=== PATIENT | female | born 1950 | race Caucasian/White ===

== ENCOUNTER 2018-05-19 05:55 | Inpatient (IN) ==
--- NOTE | 2018-04-24 10:18 | Anesthesiology Consultation ---
Date of Service April 24, 2018 Assessment & Plan (1) Encounter for pre-operative examination: Plan: *PT HAS H/O EGG ALLERGY. DOES NOT GET FLU SHOT, BUT DOES EAT EGGS WITH NO ISSUES. HAS HAD COLONOSCOPY WITH SEDATION IN THE PAST. Chart Review Chart Review: Acceptable Risk for Surgery and Patient seen in Pre Admission Testing Teaching & Discussion Instructed NPO after midnight before surgery, except medications with 15 cc of water. Medication instructions provided according to the PAT guidelines. History Surgery Operation Date: 05/19/18 08:15 Proposed Procedures p Total Knee Arthroplasty Moira - Quan Castillo DO Height/Weight Height: 5 ft Weight: 103.9 kg Allergies Allergy/AdvReac Type Severity Reaction Status Date / Time adhesive Allergy RASH WITH Verified 04/15/18 12:05 EXTENDED WEAR Egg Derived Allergy ALLERGY Verified 04/15/18 12:05 A CHILD Sulfa (Sulfonamide Allergy ITCHING Verified 04/15/18 12:04 Antibiotics) AND RASH INSECT BITES Allergy HYPERSENITIVE Uncoded 04/15/18 12:06 RXN, ALMOST ALWAYS DEVELOPED CELLULITIS Medications Home Medications Medication Instructions Recorded Confirmed Last Taken calcium carbonate-vitamin D3 1 tab PO BID 04/15/18 04/15/18 Unknown [Calcium 500 + D (D3)] clonazepam 0.25 mg PO UD PRN 04/15/18 04/15/18 Unknown furosemide 40 mg PO DAILY PRN 04/15/18 04/15/18 Unknown levothyroxine 50 mcg PO HS 04/15/18 04/15/18 Unknown meloxicam 7.5 mg PO QAM 04/15/18 04/15/18 Unknown pedi multivitamin no.79-iron 1 tab PO QAM 04/15/18 04/15/18 Unknown [Flintstones with Iron] potassium chloride [Klor-Con 10] 10 meq PO UD PRN 04/15/18 04/15/18 Unknown Past Medical History Medical History Anxiety History of cellulitis 4x per pt, most recently in 09/2017. Surgeon aware. Pt states usually 2/2 insect bite. Hypothyroidism Morbid obesity Osteoarthritis Past Surgical History Surgical History History of carpal tunnel release B/L History of section X2 History of herniorrhaphy UMBILICAL HERNIA REPAIR History of tonsillectomy Past Anesthesia History No Hx of Anesthesia Complications and No Family Hx of Anesthesia Complications History of PONV No Motion Sickness Screening History of Motion Sickness: No Social History Smoking Status: Never smoker Do You Dip or Chew Tobacco: No Hx Alcohol Use: No Hx Substance Use: No substance use type: does not use Exercise / Class Metabolic Activity III < 4 Walking/Shop/Light housework (+SOB, no CP with 1 FOS 2/2 knee pain and deconditioning.) Review of Systems Pt denies any recent chest pain, shortness of breath, palpitations, cough, fever or URI. Physical Exam Vital Signs BP: 114/75 P: 75bpm SPO2: 95% RA T: 98.0 F R: 16 ENMT Mouth: + dental restorations (2 crowns); no chipped teeth and no loose teeth Thyromental Distance: < 3.5 Finger Breadths (3) Mallampati Class: II Mouth / Teeth: 2 1. crown 2. crown Neck normal visual inspection; neck extension not limited Respiratory normal respiratory effort Auscultation: lungs clear to auscultation bilaterally Cardiovascular Rate/Rhythm: regular rate and regular rhythm Heart Sounds: no murmur Vessels: no carotid bruit Extremities: + edema (trace pitting edema B/L, baseline per pt) Testing Electrocardiogram Date: 04/24/18 Findings: + NSR @ (67) SR with PACs, otherwise normal. Chest X-Ray Date: 04/24/18 Findings: + NAD and + cardiomegaly (mild) Laboratory Results 04/24/18 10:35 04/24/18 10:35 Blood Type A Positive 04/24/18 10:35 Antibody Screen NEGATIVE 04/24/18 10:35 PT 10.7 Seconds (9.0-12.0) 04/24/18 10:35 INR 1.1 (0.9-1.1) 04/24/18 10:35 APTT 27.0 Seconds (21.0-31.0) 04/24/18 10:35 Hemoglobin A1c 6.2 % (4.5-5.6) H 04/24/18 10:35 Urine Color Yellow 04/24/18 10:35 Urine Appearance Clear (Clear) 04/24/18 10:35 Urine pH 6.5 (4.5-7.5) 04/24/18 10:35 Ur Specific [place] 1.017 (1.000-1.030) 04/24/18 10:35 Urine Protein Negative (Negative) 04/24/18 10:35 Urine Glucose (UA) Negative (Negative) 04/24/18 10:35 Urine Ketones Negative (Negative) 04/24/18 10:35 Urine Nitrite Negative (Negative) 04/24/18 10:35 Ur Leukocyte Esterase Trace (Negative) H 04/24/18 10:35 Urine WBC (Auto) 1-5 /hpf (0-5) 04/24/18 10:35 Urine RBC (Auto) 0-4 /hpf (0-4) 04/24/18 10:35 U Hyaline Cast (Auto) 0 /lpf (0-5) 04/24/18 10:35 U Epithel Cells (Auto) 10-20 /lpf (0-5) H 04/24/18 10:35 Urine Bacteria (Auto) Negative (Negative) 04/24/18 10:35 04/24/18 10:35 Urine Culture - Final Urine,Clean Catch More than three types of organisms present, all low counts mixed probable skin adam. No further identifications or sensitivities to follow.
--- NOTE | 2018-04-24 10:31 | PAT Medication Instructions ---
Medication Instructions Date of Service April 24, 2018 Home Medications calcium carbonate-vitamin D3 1 tab PO BID clonazepam 0.25 mg PO UD PRN furosemide 40 mg PO DAILY PRN levothyroxine 50 mcg PO HS meloxicam 7.5 mg PO QAM [Flintstones with Iron] 1 tab PO QAM potassium chloride [Klor-Con 10] 10 meq PO UD PRN ASK your surgeon for instructions meloxicam 7.5 mg PO QAM DO NOT take the morning of surgery calcium carbonate-vitamin D3 1 tab PO BID furosemide 40 mg PO DAILY PRN [Flintstones with Iron] 1 tab PO QAM potassium chloride [Klor-Con 10] 10 meq PO UD PRN Take morning of surgery With a small sip of water, OTHERWISE NOTHING TO EAT OR DRINK AFTER MIDNIGHT: clonazepam 0.25 mg PO UD PRN Take evening before surgery levothyroxine 50 mcg PO HS Other Notes If you have any questions please call us at [phone] or [phone] or [phone] or [phone]
--- NOTE | 2018-04-24 11:07 | XRay Report ---
XR chest Pre-admission PA/Lat HISTORY: Preop. COMPARISON: None. FINDINGS: The lungs are clear. The heart is mildly enlarged. No pleural effusions. No pneumothorax. IMPRESSION: Mild cardiomegaly. Electronically signed by: Topher Reynolds M.D. 04/24/2018 11:06 AM
[2018-04-24 12:40] LABS: Basophils # (auto) 0.02 K/uL (0-0.2); Basophils % (auto) 0.3 %; Eosinophils # (auto) 0.14 K/uL (0-0.5); Hematocrit (blood only) 38.2 % (37-47); Hemoglobin 12.3 g/dL (12.0-16.0); Immature Granulocytes # (auto) 0.03 K/uL (0.00-0.02); Immature Granulocytes % (auto) 0.4 %; Lymphocytes # (auto) 1.87 K/uL (1.2-3.4); Lymphocytes % (auto) 27.3 %; Mean Corpuscular Hgb Conc 32.2 g/dL (32-36); Mean Corpuscular Volume 94.3 fL (80-100); Mean Platelet Volume 10.4 fL (7.4-10.4); Monocytes % (auto) 10.2 %; Neutrophils # (auto) 4.09 K/uL (1.4-6.5); Neutrophils % (auto) 59.8 %; Platelet Count 263 K/uL (130-400); RDW Coefficient of Variation 14.3 % (11.5-14.5); RDW Standard Deviation 49.2 fL (36.4-46.3); Red Blood Count 4.05 M/uL (4.2-5.4); White Blood Count 6.85 K/uL (4.8-10.8)
[2018-04-24 12:44] LABS: Appearance Urine Clear (Clear); Bacteria Urine Automated Negative (Negative); Bilirubin Urine Negative (Negative); Cast Urine Automated 0 /lpf (0-5); Color Urine Yellow; Glucose Urine UA Negative (Negative); Ketones Urine Negative (Negative); Leukocyte Esterase Urine Trace (Negative); Nitrite Urine Negative (Negative); Protein Urine Negative (Negative); Specific Gravity Urine 1.017 (1.000-1.030); Urobilinogen Urine Negative (Negative); pH Urine 6.5 (4.5-7.5)
[2018-04-24 12:50] LABS: INR 1.1 (0.9-1.1); Prothrombin Time 10.7 Seconds (9.0-12.0)
[2018-04-24 13:05] LABS: Albumin Level 3.6 gm/dl (3.4-5.0); BUN Creatinine Ratio 23.1 (10-20); Calcium 9.1 mg/dl (8.5-10.1); Creatinine Clr Calc Pharmacy 78.1 ml/min; Est GFR (African American) 93.3; Est GFR (Non-African American) 80.5; Potassium 4.3 mmol/L (3.5-5.1)
[2018-04-24 13:09] LABS: Estimated Average Glucose 131 mg/dl
--- NOTE | 2018-04-24 15:44 | History & Physical Report ---
Date of Service April 24, 2018 Assessment & Plan (1) Degenerative arthritis of knee, bilateral: Further care discussed with patient and at this point in time has failed conservative measures and would like to proceed with bilateral total knee replacements. Plan on discharge will be home with home health physical therapy. DVT prophalaxis with TEDs, SCDs and will also place on Xarelto x 1 month postop. Patient will have follow up appointment in our office two weeks post op for staple/suture removal and re-evaluation. Patient otherwise has no other questions or concerns. History of Present Illness Chief Complaint: bilateral knee pain Primary Care Provider: Bindu Hassan Ms Barron is a 68 year old female who complains of knee pain equally on both sides, presents for pre-op evaluation prior to bilateral total knee replacements. She states that the symptoms have been chronic non-traumatic. The symptoms occur constantly with intermittent worsening. The problem is fluctuating. Currently the patient states that the symptoms are moderate- severe. The pain is described as aching and sharp. The patient is experiencing pain in the following location: anterior aspect on the right and left side equally. She rates her current pain as 8/10. The symptoms are aggravated by ascending stairs, descending stairs, daily activities and walking. The patient has had a previous x-ray. She has been treated with a corticosteroid injection on the right and left side equally. Patient had Supartz Injection completed on 02/25/18. Patient is scheduled for bilateral TKA on 05-19-18. Allergies Allergy/AdvReac Type Severity Reaction Status Date / Time adhesive Allergy RASH WITH Verified 04/15/18 12:05 EXTENDED WEAR Egg Derived Allergy ALLERGY Verified 04/15/18 12:05 A CHILD Sulfa (Sulfonamide Allergy ITCHING Verified 04/15/18 12:04 Antibiotics) AND RASH INSECT BITES Allergy HYPERSENITIVE Uncoded 04/15/18 12:06 RXN, ALMOST ALWAYS DEVELOPED CELLULITIS Home Medications Home Medications Medication Instructions Recorded Confirmed Type calcium carbonate-vitamin D3 1 tab PO BID 04/15/18 04/15/18 History [Calcium 500 + D (D3)] clonazepam 0.25 mg PO UD PRN 04/15/18 04/15/18 History furosemide 40 mg PO DAILY PRN 04/15/18 04/15/18 History levothyroxine 50 mcg PO HS 04/15/18 04/15/18 History meloxicam 7.5 mg PO QAM 04/15/18 04/15/18 History pedi multivitamin no.79-iron 1 tab PO QAM 04/15/18 04/15/18 History [Flintstones with Iron] potassium chloride [Klor-Con 10] 10 meq PO UD PRN 04/15/18 04/15/18 History Past Med/Surg History Medical History Anxiety History of cellulitis 4x per pt, most recently in 09/2017. Surgeon aware. Pt states usually 2/2 insect bite. 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 Passive ROM - Flexion: 115 degrees , Extension: 3 degrees, Factors: pain, Description: passive painful range of motion. Knee ROM R * Active ROM - Flexion: 115 degrees, Extension: 3 degrees, Factors: pain, Description: active painful range of motion. Passive ROM - Flexion: 115 degrees , Extension: 3 degrees, Factors: pain, Description: passive painful range of motion. Strength LE Normal Strength Description - Normal lower extremity: Bilateral. Constitutional Normal No acute distress. Well nourished. Well developed. Knee * Inspection - Gait: antalgic. Alignment - Right: neutral, Left: neutral. Ecchymosis - Right: negative, Left: negative. Effusion - Right: mild, Left: mild. Swelling - Right: mild, Left: mild. Flexibility - Right: normal, Left: normal. Maximum tenderness - Right: medial joint line, lateral joint line, patella, Left: medial joint line, lateral joint line, patella. Patella exam - Crepitation - Right: mild, Left: mild. Patella position - Right: neutral, Left: neutral. Tilt - Right: equal, Left: equal. [facility]'s - lateral - Right: Positive, Left: Positive. [place]'s - medial - Right: Positive, Left: Positive. Knee Comments No calf tenderness; abrasion to right lower leg, mild erythema no drainage. Knee Normal Inspection - Atrophy - Right: Absent, Left: Absent. Skin - Right: Normal, Left: Normal. Patella exam - Apprehension - Right: Negative, Left: Negative. Q-angle - Right: Normal, Left: Normal. Alina's - Right: Negative, Left: Negative. Posterior drawer - Right: Negative, Left: Negative. Anterior drawer - Right: Negative, Left: Negative. Valgus stress - Right: Negative, Left: Negative. Varus stress - Right: Negative, Left: Negative. Extensor lag - Right: Normal, Left: Normal. Neurovascular LE Normal Neurovascular examination including reflexes, sensation, and pulses is within normal limits. Results & Data Diagnostic Findings Bilateral Knee X-ray: bilateral knee series confirm advanced degenerative changes bilateral knees, greatest medial compartments and patellofemoral joints, showing joint space narrowing, osteophyte formation and subchondral sclerosis. no acute bony pathology noted.
--- NOTE | 2018-05-15 14:14 | History & Physical Report ---
Date of Service May 15, 2018 Assessment & Plan (1) Primary localized osteoarthritis of right knee: Further care discussed with patient and at this point in time has failed conservative measures and would like to proceed with Right total knee replacement. Plan on discharge will be home with home health physical therapy. DVT prophalaxis with TEDs, SCDs and will also place on Aspirin 81mg po x 1 month postop. Patient will have follow up appointment in our office two weeks post op for staple/suture removal and re-evaluation. Patient otherwise has no other questions or concerns. History of Present Illness Chief Complaint: RIGHT KNEE PAIN Primary Care Provider: Bindu Hassan Ms Barron is a 68 year old female who complains of Righ knee pain, presents for pre-op evaluation prior to right total knee replacement at [facility]. She states that the symptoms have been chronic non-traumatic. The symptoms occur constantly with intermittent worsening. Currently the patient states that the symptoms are moderate-severe. The pain is described as aching and sharp. The patient is experiencing pain in the following location: anterior aspect on the right and left side equally. She rates her current pain as 8/10. The symptoms are aggravated by ascending stairs, descending stairs, daily activities and walking. The patient has had a previous x-ray. She has been treated with a corticosteroid injection on the right and left side equally. Patient had Supartz Injection completed on 02/25/18. Patient is scheduled for Right TKA Allergies Allergy/AdvReac Type Severity Reaction Status Date / Time adhesive Allergy RASH WITH Verified 04/15/18 12:05 EXTENDED WEAR Egg Derived Allergy ALLERGY Verified 04/15/18 12:05 A CHILD Sulfa (Sulfonamide Allergy ITCHING Verified 04/15/18 12:04 Antibiotics) AND RASH Home Medications Home Medications Medication Instructions Recorded Confirmed Type calcium carbonate-vitamin D3 1 tab PO BID 04/15/18 04/15/18 History [Calcium 500 + D (D3)] clonazepam 0.25 mg PO UD PRN 04/15/18 04/15/18 History furosemide 40 mg PO DAILY PRN 04/15/18 04/15/18 History levothyroxine 50 mcg PO HS 04/15/18 04/15/18 History meloxicam 7.5 mg PO QAM 04/15/18 04/15/18 History pedi multivitamin no.79-iron 1 tab PO QAM 04/15/18 04/15/18 History [Flintstones with Iron] potassium chloride [Klor-Con 10] 10 meq PO UD PRN 04/15/18 04/15/18 History Past Med/Surg History Medical History Anxiety History of cellulitis 4x per pt, most recently in 09/2017. Surgeon aware. Pt states usually 2/2 insect bite. Hypothyroidism Morbid obesity Osteoarthritis Surgical History History of carpal tunnel release B/L History of section X2 History of herniorrhaphy UMBILICAL HERNIA REPAIR History of tonsillectomy Family History Unknown Diabetes Social History Current Living Situation: Spouse Other Information That Helps Us Care for You: No Feels Safe at Home: Yes Safety Concerns: Feels Safe At This Time Smoking Status: Never smoker Do You Dip or Chew Tobacco: No Hx Alcohol Use: No Hx Substance Use: No Beliefs That Will Affect Care: None Preferred Language: Uzbek Communication Ability: Effective Configuration Technician Required: No Review of Systems All systems reviewed & are unremarkable except as noted in HPI & below Physical Exam 2 Constitutional: WD/WN, vitals as above no acute distress Respiratory: normal respiratory effort, lungs clear to auscultation Cardiovascular: RRR, no murmur, no edema Gastrointestinal (Abdomen): normal bowel sounds, soft, nontender, no hepatosplenomegaly Musculoskeletal: Right Knee Exam Patient ambulates with a limp, overall varus Alignment, no Atrophy or Ecchymosis , she does have mild Effusion, Maximum tenderness Medial and lateral joint line , negative patellar Apprehension , mild Crepitation with motion, Patella position Neutral, Alina's Negative, Xiang's - lateral positive, Xiang's - medial positive, Posterior drawer- Negative, Anterior drawer Negative, Valgus stress Negative, Varus stress Negative, no Extensor lag, Pain with Active range of motion and passive painful ROM, Range of motion 0/5/100. Lower Extremity Strength normal. Lower Extremity Neuro-vascular is normal Results & Data Laboratory Results Laboratory Results WBC 6.85 K/uL (4.8-10.8) 04/24/18 10:35 RBC 4.05 M/uL (4.2-5.4) L 04/24/18 10:35 Hgb 12.3 g/dL (12.0-16.0) 04/24/18 10:35 Hct 38.2 % (37-47) 04/24/18 10:35 MCV 94.3 fL (80-100) 04/24/18 10:35 MCH 30.4 pg (25-34) 04/24/18 10:35 MCHC 32.2 g/dL (32-36) 04/24/18 10:35 RDW Std Deviation 49.2 fL (36.4-46.3) H 04/24/18 10:35 RDW Coeff of Carmella 14.3 % (11.5-14.5) 04/24/18 10:35 Plt Count 263 K/uL (130-400) 04/24/18 10:35 MPV 10.4 fL (7.4-10.4) 04/24/18 10:35 Immature Gran % (Auto) 0.4 % 04/24/18 10:35 Neut % (Auto) 59.8 % 04/24/18 10:35 Lymph % (Auto) 27.3 % 04/24/18 10:35 Cochran % (Auto) 10.2 % 04/24/18 10:35 Eos % (Auto) 2.0 % 04/24/18 10:35 Baso % (Auto) 0.3 % 04/24/18 10:35 Immature Gran # (Auto) 0.03 K/uL (0.00-0.02) H 04/24/18 10:35 Neut # (Auto) 4.09 K/uL (1.4-6.5) 04/24/18 10:35 Lymph # (Auto) 1.87 K/uL (1.2-3.4) 04/24/18 10:35 Cochran # (Auto) 0.70 K/uL (0.11-0.59) H 04/24/18 10:35 Eos # (Auto) 0.14 K/uL (0-0.5) 04/24/18 10:35 Baso # (Auto) 0.02 K/uL (0-0.2) 04/24/18 10:35 PT 10.7 Seconds (9.0-12.0) 04/24/18 10:35 INR 1.1 (0.9-1.1) 04/24/18 10:35 APTT 27.0 Seconds (21.0-31.0) 04/24/18 10:35 PTT Ratio 1.0 04/24/18 10:35 Sodium 138 mmol/L (136-145) 04/24/18 10:35 Potassium 4.3 mmol/L (3.5-5.1) 04/24/18 10:35 Chloride 105 mmol/L (98-107) 04/24/18 10:35 Carbon Dioxide 29 mmol/L (21-32) 04/24/18 10:35 Anion Gap 4.0 (3-11) 04/24/18 10:35 BUN 18 mg/dl (7-18) 04/24/18 10:35 Creatinine 0.77 mg/dl (0.6-1.2) 04/24/18 10:35 Est Cr Clr Drug Dosing 78.1 ml/min 04/24/18 10:35 Est GFR ( Amer) 93.3 04/24/18 10:35 Est GFR (Non-Af Amer) 80.5 04/24/18 10:35 BUN/Creatinine Ratio 23.1 (10-20) H 04/24/18 10:35 Glucose 104 mg/dl (70-99) H 04/24/18 10:35 Estimat Average Glucose 131 mg/dl 04/24/18 10:35 Hemoglobin A1c 6.2 % (4.5-5.6) H 04/24/18 10:35 Calcium 9.1 mg/dl (8.5-10.1) 04/24/18 10:35 Albumin 3.6 gm/dl (3.4-5.0) 04/24/18 10:35 Urine Color Yellow 04/24/18 10:35 Urine Appearance Clear (Clear) 04/24/18 10:35 Urine pH 6.5 (4.5-7.5) 04/24/18 10:35 Ur Specific [place] 1.017 (1.000-1.030) 04/24/18 10:35 Urine Protein Negative (Negative) 04/24/18 10:35 Urine Glucose (UA) Negative (Negative) 04/24/18 10:35 Urine Ketones Negative (Negative) 04/24/18 10:35 Urine Blood Negative (Negative) 04/24/18 10:35 Urine Nitrite Negative (Negative) 04/24/18 10:35 Urine Bilirubin Negative (Negative) 04/24/18 10:35 Urine Urobilinogen Negative (Negative) 04/24/18 10:35 Ur Leukocyte Esterase Trace (Negative) H 04/24/18 10:35 Urine WBC (Auto) 1-5 /hpf (0-5) 04/24/18 10:35 Urine RBC (Auto) 0-4 /hpf (0-4) 04/24/18 10:35 U Hyaline Cast (Auto) 0 /lpf (0-5) 04/24/18 10:35 U Epithel Cells (Auto) 10-20 /lpf (0-5) H 04/24/18 10:35 Urine Bacteria (Auto) Negative (Negative) 04/24/18 10:35 Blood Type A Positive 04/24/18 10:35 Antibody Screen NEGATIVE 04/24/18 10:35 Diagnostic Findings Right Knee X-ray: Right knee series showing advanced degenerative changes to the right knee, narrowing of the medial compartment and patello-femoral joint with patellar spurring noted, findings showing joint space narrowing of the medial compartment and patello-femoral joint, osteophyte formation and subchondral sclerosis noted. overall varus alignment. no acute bony pathology noted.
[2018-05-19] MEDS ORDERED: GABAPENTIN 300 MG PO SCH (06:00)
[2018-05-19] MEDS ORDERED: dexAMETHasone 4 MG TAB PO SCH (06:00)
[2018-05-19] MEDS ORDERED: TRANEXAMIC ACID 1,000 MG **IV Pre-op IV SCH (06:00)
[2018-05-19] MEDS ORDERED: FAMOTIDINE 20 MG TAB PO SCH (06:00)
[2018-05-19] MEDS ORDERED: ACETAMINOPHEN 500 MG TAB PO SCH (06:00)
[2018-05-19] MEDS ORDERED: ROPIVACAINE 0.5% HCL/PF 150 MG, BUPIVACAINE 0.5% MPF 30 ML, EPINEPHrine 30MG/30ML (OR U... INFIL SCH (06:00)
[2018-05-19] MEDS ORDERED: CEFAZOLIN 2000MG 2,000 MG/15 ML SYR IV SCH (06:00)
[2018-05-19] MEDS ORDERED: CeleBREX 200 MG CAP PO SCH (06:00)
[2018-05-19] MEDS ORDERED: METOCLOPRAMIDE HCL 10 MG TABLET PO SCH (06:00)
[2018-05-19] MEDS ORDERED: TRANEXAMIC ACID 1,000 MG **IV Intra-op IV SCH (06:30)
[2018-05-19] MEDS ORDERED: BUPIVACAINE 0.5 % 5 MG/1 ML PF 10ML VIAL ONE (06:36)
[2018-05-19] MEDS ORDERED: BUPIVACAINE/EPINEPHRINE 0.5% MPF 1:200,000 30 ML VIAL ONE (06:36)
[2018-05-19] MEDS ORDERED: DEXAMETHASONE SOD INJ 4 MG/ML VIAL ONE (06:37)
[2018-05-19] MEDS ORDERED: fentaNYL citrate 100 MCG/2 ML VIAL ONE (07:06)
[2018-05-19] MEDS ORDERED: PHENYLEPHRINE 100MCG/ML 5ML SYR ONE (07:06)
[2018-05-19] MEDS ORDERED: ePHEDrine sulfate 50 MG/ML SYR ONE (07:06)
[2018-05-19] MEDS ORDERED: PROPOFOL IV EMULSION 10 MG/ML 20 ML VIAL IV ONE ×2 (07:06→09:12)
[2018-05-19] MEDS ORDERED: MIDAZOLAM HCL 1 MG/ML 2ML VIAL ONE (07:06)
[2018-05-19] MEDS ORDERED: LIDOCAINE HCL 2% 2 ML VIAL/AMP(20MG/ML) INFIL ONE (07:06)
[2018-05-19] MEDS ORDERED: BACITRACIN INJ 50,000 UNIT VIAL ONE (07:07)
[2018-05-19] MEDS: LR 500ML BOLUS, THEN 15ML/HR IV SCH ×4 (07:07→12:01)
[2018-05-19] MEDS ORDERED: ORTHO JOINT ANESTHETIC ONE (07:07)
[2018-05-19] MEDS ORDERED: POVIDONE-IODINE OP SOLN 30 ML BTL ONE (07:07)
--- NOTE | 2018-05-19 07:11 | History & Physical Bridge Note ---
Date of Service May 19, 2018 History & Physical Bridge Note I have examined the patient, reviewed the History & Physical and in the interval since the performance of the History & Physical I have noted the following changes of clinical significance: no changes noted
[2018-05-19] MEDS ORDERED: ONDANSETRON INJ 2 MG/ML 2 ML VIAL IV PRN ×2 (08:07→11:43)
[2018-05-19] MEDS ORDERED: fentaNYL citrate 100 MCG/2 ML VIAL IV PRN (08:07)
[2018-05-19] MEDS ORDERED: ePHEDrine sulfate 50 MG/ML AMP IV PRN (08:07)
[2018-05-19] MEDS ORDERED: ATROPINE SULFATE 0.1 MG/ML 10ML SYR IV PRN (08:07)
--- NOTE | 2018-05-19 09:50 | Operative Report ---
Post Operative Report Pre & Post Diagnosis Operation Date: 05/19/18 08:35 Pre-Op Diagnosis: RIGHT KNEE OSTEOARTHRITIS Post-Op Diagnosis: RIGHT KNEE OSTEOARTHRITIS Procedure Operation Date: 05/19/18 08:35 Actual Procedures p Right Total Knee Arthroplasty(Right) utilizing [employer] non-bloc journey to total knee arthroplasty size 4 femur size 3 tibia size 11 polyethylene size 32 oval patella- Quan Castillo DO Surgeon Quan Castillo DO Clinical Admissions Manager Torito SINGH Estimated Blood Loss 5 Findings Consistent with Post-Op Diagnosis Patient presents with severe end-stage tricompartmental degenerative joint disease varus alignment right knee with subchondral cystic changes marginal osteophytes moderate to large intra-articular effusion serial ligamentous laxity of medial compartment although response to conservative management the above findings were noted times surgery as well as preoperatively on radiographs and mri scans Specimens Bone and cartilage Drains Medium bore Hemovac Complications none Disposition Accompanied Patient To Recovery: No Disposition: Recovery Room Indications Patient presents as a 68-year-old white female with severe end-stage) degenerative joint disease right knee is been no response to conservative therapy she has udtc-on-tyvr changes patellofemoral compartment as well as medial compartment osteophyte subchondral cystic changes she is failed attempts at conservative management including injections cortical steroid injections Visco supplementation is bracing relative rest activity modification presents for right total knee arthroplasty the above findings are noted times surgery Description of Procedure After proper prepping and draping of the Right lower extremity anterior midline incision was made over the region of the extensor extensor mechanism after meticulous hemostasis was obtained and maintained in subcutaneous tissues a medial parapatellar incision was made The patella was subluxed lateralward the medial lateral gutter were cleaned from any hypertrophic synovitis and scar tissue of the distal femoral block was placed and the distal femoral osteotomy cut was made subsequently the chamfers anterior and posterior osteotomy cuts were made utilizing the 4-in-1 block the tibia was subsequently subluxed anteriorward medial and ateral meniscal remnants were excised in their entirety remnants of the anterior and posterior cruciate ligaments were excised in their entirety excellent exposure of the proximal tibia was obtained the tibial osteotomy guide was placed on the proximal tibial osteotomy cut was made once again the knee was irrigated with copious amounts of sterile saline solution the patella was subsequently everted lateralward thickened scar tissue around the patella was removed the patella was subsequently cut utilizing a freehand technique and was drilled prepared for final preparation and placement of patella socially flexion-extension gaps were checked and the equal and symmetric trials were placed to the appropriate femoral and tibial trials with poly-spacer being placed for equal flexion and extension gaps and full range of motion including extension to 0 and flexion to 140 the trial components after having been taken to recovery range of motion was subsequently removed meticulous hemostasis was obtained and maintained subsequently a knee block injection of joint cocktail including ropivacaine 0.5% 150 mg. Bupivacaine 0.5 % epinephrine 1-200,030 mL's toradol 30 mg dexamethasone 4 mg ketamine 10 mg clonidine 100 micrograms normal saline solution 30 mg was infiltrated into the soft tissues of the posterior knee medial lateral gutters and periosteal synovium special attention was paid to protect neurovascular structures at all times subsequently trial components having been removed the knee was irrigated with sterile saline solution. debris was removed the proximal tibia was subsequently prepared and was made ready for the placement of the tibial component tibial component was also cemented and tamped into position the femoral component was subsequently placed and cemented in the position the patellar component was subsequently cemented in position because hemostasis once again obtained and maintained wound having been thoroughly irrigated with debridement and debridement lavage was performed as well as a medial parapatellar incision closed with #1 Vicryl in interrupted fashion subcutaneous was closed with #2 Vicryl skin was closed with skin clips. PA-C was necessary for prepping and drapping as well as wound closure of deep fascia Sub cutaneous tissue and skin and was necessary for the case. A sterile compressive dressing was placed patient was taken to recovery in stable condition of report dictated by Jonathan I attest to the content of the Intraoperative Record and any orders documented therein. Any exceptions are noted below. I attest to the content of the Intraoperative Record and any orders documented therein. Any exceptions are noted below.
--- NOTE | 2018-05-19 11:07 | XRay Report ---
XR knee RT 2V routine CLINICAL HISTORY: Surgical Post Op COMPARISON: Knee radiographs August 11, 2017. FINDINGS: Alignment of the total right knee arthroplasty is anatomic. There is no fracture or unexpe cted radiopaque foreign body. Drains are in place. IMPRESSION: Expected findings following total right knee arthroplasty. Electronically signed by: Venu Henning M.D. 05/19/2018 11:05 AM
--- NOTE | 2018-05-19 11:12 | Anesthesiology Progress Note ---
Date of Service May 19, 2018 Anesthesia Post Procedure Vital Signs Vital Signs: Temp Pulse Pulse Pulse Resp BP BP 05/19/18 11:06 72 18 126/68 05/19/18 11:05 78 20 05/19/18 11:01 80 18 120/74 05/19/18 11:00 78 16 05/19/18 10:56 80 18 120/67 05/19/18 10:55 80 18 05/19/18 10:51 86 18 118/65 05/19/18 10:50 79 20 05/19/18 10:46 85 22 109/67 05/19/18 10:45 83 16 05/19/18 10:41 82 19 109/70 05/19/18 10:40 86 19 05/19/18 10:36 80 17 109/66 05/19/18 10:35 88 21 05/19/18 10:32 91 H 21 117/64 05/19/18 10:31 36.8 C 88 81 20 117/64 05/19/18 06:40 36.7 C 82 20 113/64 Pulse Ox 05/19/18 11:06 96 05/19/18 11:05 98 05/19/18 11:01 97 05/19/18 11:00 99 05/19/18 10:56 99 05/19/18 10:55 99 05/19/18 10:51 99 05/19/18 10:50 99 05/19/18 10:46 99 05/19/18 10:45 99 05/19/18 10:41 99 05/19/18 10:40 99 05/19/18 10:36 99 05/19/18 10:35 98 05/19/18 10:32 98 05/19/18 10:31 98 05/19/18 06:40 95 Pain Intensity Bilateral Knee: Pain Intensity: 8 Right Knee: Pain Intensity: 0 Notes Mental Status: alert / awake / arousable Patient Amnestic to Procedure: Yes Nausea / Vomiting: adequately controlled Pain: adequately controlled Airway Patency, RR, SpO2: stable & adequate BP & HR: stable & adequate Hydration State: stable & adequate Neuraxial Anesthesia: was administered and sensory block is resolving Anesthetic Complications: no major complications apparent
[2018-05-19] MEDS ORDERED: NALOXONE HCL 0.4 MG/1 ML VIAL/CARP IV PRN (11:43)
[2018-05-19] MEDS ORDERED: MAGNESIUM HYDROXIDE SUSP 30 ML UDC PO PRN (11:43)
[2018-05-19] MEDS ORDERED: ALUMINUM/MAGNESIUM SUSP 30 ML UDC PO PRN (11:43)
[2018-05-19] MEDS ORDERED: BISACODYL 10 MG SUPP PR PRN (11:43)
[2018-05-19] MEDS ORDERED: HYDROmorphone INJ 0.5 MG/0.5 ML SYR IV PRN (11:43)
[2018-05-19] MEDS: SODIUM CHLORIDE 0.9% 1000ML 1,000 ML IV SCH ×2 (14:43→22:18)
[2018-05-19] MEDS: OXYCODONE HCL IR 5 MG TAB (IMMEDIATE RELEASE) PO PRN (14:47)
[2018-05-19] MEDS: ACETAMINOPHEN 500 MG TAB PO SCH ×2 (14:47→22:03)
[2018-05-19] MEDS: CEFAZOLIN 2000MG 2,000 MG/15 ML SYR IV SCH (16:56)
[2018-05-19] MEDS ORDERED: Nursing to Pharmacy Communication ONE (17:08)
[2018-05-19] MEDS ORDERED: clonazePAM 0.5 MG TAB PO PRN (17:32)
[2018-05-19] MEDS: ASPIRIN 81 MG ECTAB PO SCH (20:38)
[2018-05-19] MEDS: DOCUSATE SODIUM 100 MG CAP PO SCH (20:38)
[2018-05-19] MEDS ORDERED: LEVOTHYROXINE SODIUM 50 MCG TABLET PO SCH (21:00)
[2018-05-19] MEDS ORDERED: SENNA 8.6 MG TAB PO SCH (21:00)
[2018-05-20] MEDS: CEFAZOLIN 2000MG 2,000 MG/15 ML SYR IV SCH (01:57)
[2018-05-20] MEDS: ACETAMINOPHEN 500 MG TAB PO SCH ×2 (05:36→13:37)
[2018-05-20] MEDS ORDERED: Nursing to Pharmacy Communication ONE (05:55)
[2018-05-20 07:17] LABS: Hematocrit (blood only) 33.3 % (37-47); Hemoglobin 10.6 g/dL (12.0-16.0); Mean Corpuscular Hgb Conc 31.8 g/dL (32-36); Mean Corpuscular Volume 94.3 fL (80-100); Mean Platelet Volume 10.3 fL (7.4-10.4); Platelet Count 238 K/uL (130-400); RDW Coefficient of Variation 14.7 % (11.5-14.5); RDW Standard Deviation 50.2 fL (36.4-46.3); Red Blood Count 3.53 M/uL (4.2-5.4); White Blood Count 16.64 K/uL (4.8-10.8)
[2018-05-20] MEDS: OXYCODONE HCL IR 5 MG TAB (IMMEDIATE RELEASE) PO PRN ×2 (07:30→13:37)
[2018-05-20] MEDS: DOCUSATE SODIUM 100 MG CAP PO SCH (07:32)
[2018-05-20] MEDS: ASPIRIN 81 MG ECTAB PO SCH (07:33)
[2018-05-20 07:42] LABS: BUN Creatinine Ratio 20.5 (10-20); Calcium 8.3 mg/dl (8.5-10.1); Creatinine Clr Calc Pharmacy 65.2 ml/min; Est GFR (African American) 76.2; Est GFR (Non-African American) 65.7; Potassium 4.3 mmol/L (3.5-5.1)
[2018-05-20] MEDS ORDERED: MULTIVITAMIN TAB PO SCH (09:00)
--- NOTE | 2018-05-20 10:23 | Orthopedic Progress Note ---
Date of Service May 20, 2018 Assessment & Plan (1) History of total right knee replacement (TKR): POD #1 s/p Right TKA pt/ot dvt proph with [facility]/SCD/ASA plan for d/c home with home health PT, likely after PT today will d/c hemovac prior to d/c Subjective pod #1 right TKA doing well, denies CP/SOB denies Fever/Chills Physical Exam 2 Vital Signs (Past 24 Hours): Last Vital Signs Temp 36.5 C 05/20/18 08:11 Pulse 57 L 05/20/18 08:11 Resp 18 05/20/18 08:11 BP 150/102 H 05/20/18 08:11 Pulse Ox 97 05/20/18 08:11 Musculoskeletal: Right Knee: neurovasculary intact, calf SNT, negative cherrie sign. DP palpable, able to wiggle toes/ankle movement without difficulty. dressing clean dry and intact. Results & Data Laboratory Results Laboratory Results WBC 16.64 K/uL (4.8-10.8) H 05/20/18 06:37 RBC 3.53 M/uL (4.2-5.4) L 05/20/18 06:37 Hgb 10.6 g/dL (12.0-16.0) L 05/20/18 06:37 Hct 33.3 % (37-47) L 05/20/18 06:37 MCV 94.3 fL (80-100) 05/20/18 06:37 MCH 30.0 pg (25-34) 05/20/18 06:37 MCHC 31.8 g/dL (32-36) L 05/20/18 06:37 RDW Std Deviation 50.2 fL (36.4-46.3) H 05/20/18 06:37 RDW Coeff of Carmella 14.7 % (11.5-14.5) H 05/20/18 06:37 Plt Count 238 K/uL (130-400) 05/20/18 06:37 MPV 10.3 fL (7.4-10.4) 05/20/18 06:37 Immature Gran % (Auto) 0.4 % 04/24/18 10:35 Neut % (Auto) 59.8 % 04/24/18 10:35 Lymph % (Auto) 27.3 % 04/24/18 10:35 [place] % (Auto) 10.2 % 04/24/18 10:35 Eos % (Auto) 2.0 % 04/24/18 10:35 Baso % (Auto) 0.3 % 04/24/18 10:35 Immature Gran # (Auto) 0.03 K/uL (0.00-0.02) H 04/24/18 10:35 Neut # (Auto) 4.09 K/uL (1.4-6.5) 04/24/18 10:35 Lymph # (Auto) 1.87 K/uL (1.2-3.4) 04/24/18 10:35 [place] # (Auto) 0.70 K/uL (0.11-0.59) H 04/24/18 10:35 Eos # (Auto) 0.14 K/uL (0-0.5) 04/24/18 10:35 Baso # (Auto) 0.02 K/uL (0-0.2) 04/24/18 10:35 PT 10.7 Seconds (9.0-12.0) 04/24/18 10:35 INR 1.1 (0.9-1.1) 04/24/18 10:35 APTT 27.0 Seconds (21.0-31.0) 04/24/18 10:35 PTT Ratio 1.0 04/24/18 10:35 Sodium 137 mmol/L (136-145) 05/20/18 06:37 Potassium 4.3 mmol/L (3.5-5.1) 05/20/18 06:37 Chloride 105 mmol/L (98-107) 05/20/18 06:37 Carbon Dioxide 24 mmol/L (21-32) 05/20/18 06:37 Anion Gap 8.0 (3-11) 05/20/18 06:37 BUN 19 mg/dl (7-18) H 05/20/18 06:37 Creatinine 0.91 mg/dl (0.6-1.2) 05/20/18 06:37 Est Cr Clr Drug Dosing 65.2 ml/min 05/20/18 06:37 Est GFR ( Amer) 76.2 05/20/18 06:37 Est GFR (Non-Af Amer) 65.7 05/20/18 06:37 BUN/Creatinine Ratio 20.5 (10-20) H 05/20/18 06:37 Glucose 116 mg/dl (70-99) H 05/20/18 06:37 Estimat Average Glucose 131 mg/dl 04/24/18 10:35 Hemoglobin A1c 6.2 % (4.5-5.6) H 04/24/18 10:35 Calcium 8.3 mg/dl (8.5-10.1) L 05/20/18 06:37 Albumin 3.6 gm/dl (3.4-5.0) 04/24/18 10:35 Urine Color Yellow 04/24/18 10:35 Urine Appearance Clear (Clear) 04/24/18 10:35 Urine pH 6.5 (4.5-7.5) 04/24/18 10:35 Ur Specific [place] 1.017 (1.000-1.030) 04/24/18 10:35 Urine Protein Negative (Negative) 04/24/18 10:35 Urine Glucose (UA) Negative (Negative) 04/24/18 10:35 Urine Ketones Negative (Negative) 04/24/18 10:35 Urine Blood Negative (Negative) 04/24/18 10:35 Urine Nitrite Negative (Negative) 04/24/18 10:35 Urine Bilirubin Negative (Negative) 04/24/18 10:35 Urine Urobilinogen Negative (Negative) 04/24/18 10:35 Ur Leukocyte Esterase Trace (Negative) H 04/24/18 10:35 Urine WBC (Auto) 1-5 /hpf (0-5) 04/24/18 10:35 Urine RBC (Auto) 0-4 /hpf (0-4) 04/24/18 10:35 U Hyaline Cast (Auto) 0 /lpf (0-5) 04/24/18 10:35 U Epithel Cells (Auto) 10-20 /lpf (0-5) H 04/24/18 10:35 Urine Bacteria (Auto) Negative (Negative) 04/24/18 10:35 Blood Type A Positive 04/24/18 10:35 Antibody Screen NEGATIVE 04/24/18 10:35 Diagnostic Findings Right Knee X-rays: FINDINGS: Alignment of the total right knee arthroplasty is anatomic. There is no fracture or unexpected radiopaque foreign body. Drains are in place. IMPRESSION: Expected findings following total right knee arthroplasty.
--- NOTE | 2018-05-22 15:30 | Discharge Summary ---
DISCHARGE DIAGNOSIS: Degenerative joint disease, right knee. SECONDARY DIAGNOSES: Anxiety, history of cellulitis, hypothyroidism, morbid obesity, osteoarthritis. CONSULTS: None. COMPLICATIONS: None. PROCEDURES: Right total knee arthroplasty performed by Dr. Castillo on 05/19/2018. BRIEF HISTORY: As dictated in the history and physical. HOSPITAL SUMMARY: Patient was admitted on the above date and had the above noted surgery performed which she tolerated well. On the first postoperative day, patient was doing well and had no complaints. Her dressings were clean, dry, and intact. Toes were mobile. Neurovascular was intact. Calves were soft and nontender. Hemoglobin was 10.6. Patient was started on physical therapy protocol and continued on DVT prophylaxis and pain management. She progressed well with her physical therapy and was remaining stable, and it was felt she could be discharged to home with home health services on 05/20/2018. For further review, please see chart. LABORATORY AND X-RAY DATA: As per chart. DISCHARGE INSTRUCTIONS: Patient will be discharged to home in satisfactory condition on 05/20/2018. DIET: Regular. ACTIVITY: Weightbearing as tolerated on right lower extremity with walker for assistance. Follow TKA instruction sheets and special care instructions as noted. Follow up with Dr. Castillo in 2 weeks. Patient to call for appointment if one is not made for you. DISCHARGE MEDICATIONS: Acetaminophen 1000 mg p.o. q.8 h., aspirin 81 mg p.o. b.i.d., cefadroxil 500 mg p.o. b.i.d. for 2 weeks, meloxicam 15 mg p.o. daily, oxycodone 5-10 mg p.o. q.4 h. p.r.n. Resume home medications as listed and stop taking meloxicam.
== END 2018-05-20 14:01 | disposition home health service (06) | DRG 470 ==
LOC: ASU 05:55 → 3E 10:50
DX: Z88.2 Allergy status to sulfonamides; E66.01 Morbid (severe) obesity due to excess calories; M17.0 Bilateral primary osteoarthritis of knee; Z79.1 Long term (current) use of non-steroidal anti-inflammatories (NSAID); Z79.899 Other long term (current) drug therapy; E03.9 Hypothyroidism, unspecified; Z91.012 Allergy to eggs; Z68.42 Body mass index [BMI] 45.0-49.9, adult; Z91.048 Other nonmedicinal substance allergy status

== ENCOUNTER 2019-06-22 04:47 | Inpatient (IN) ==
--- NOTE | 2019-04-19 12:27 | PAT Medication Instructions ---
Medication Instructions Date of Service April 19, 2019 Home Medications Medication Instructions Recorded meloxicam [Mobic] 15 mg PO DAILY #30 tab 05/20/18 Flintstones with Iron 1 tab PO QAM clonazepam 0.5 mg PO UD PRN furosemide 40 mg PO UD PRN levothyroxine 50 mcg PO HS potassium chloride [Klor-Con 10] 10 meq PO UD PRN meloxicam [Mobic] 15 mg PO DAILY calcium carbonate-vitamin D3 [Calcium 600 + D(3)] 2 tab PO DAILY ASK your surgeon for instructions meloxicam [Mobic] 15 mg PO DAILY DO NOT take the morning of surgery Flintstones with Iron 1 tab PO QAM furosemide 40 mg PO UD PRN potassium chloride [Klor-Con 10] 10 meq PO UD PRN calcium carbonate-vitamin D3 [Calcium 600 + D(3)] 2 tab PO DAILY Take morning of surgery With a small sip of water, OTHERWISE NOTHING TO EAT OR DRINK AFTER MIDNIGHT: clonazepam 0.5 mg PO UD PRN (if needed) Take evening before surgery clonazepam 0.5 mg PO UD PRN (if needed) furosemide 40 mg PO UD PRN (if needed) levothyroxine 50 mcg PO HS potassium chloride [Klor-Con 10] 10 meq PO UD PRN (if needed) Other Notes If you have any questions please call us at [phone] or [phone] or [phone] or [phone]
--- NOTE | 2019-04-20 11:38 | Anesthesiology Consultation ---
Date of Service April 20, 2019 Assessment & Plan (1) Encounter for pre-operative examination: - S/P right total knee arthroplasty: 05/19/18: SAB x3 at L4 + PNB at [facility]. Discussed SAB vs. GA. - Egg reaction: allergy as child (lip swelling and itchy). Patient states currently eats egg containing products without issue Chart Review Chart Review: Acceptable Risk for Surgery (pending surgeon-ordered PCP preop evaluation scheduled 04/23 (Dr. Masterson)) and Patient seen in Pre Admission Testing Teaching & Discussion Pre-Anesthesia Teaching/Discussion Notes: Instructed NPO after midnight before surgery,except medications with 15 cc of water. Medication instructions provided according to the PAT guidelines. History Surgery Operation Date: 05/18/19 08:55 Proposed Procedures p Left Total Knee Arthroplasty - Quan Castillo DO Height/Weight Height: 5 ft Weight: 107.8 kg Allergies Allergy/AdvReac Type Severity Reaction Status Date / Time adhesive Allergy Unknown RASH WITH Verified 04/12/19 11:27 EXTENDED WEAR Egg Derived Allergy Unknown ALLERGY Verified 04/12/19 11:27 A CHILD (LIPS SWELLING & ITCHY) Sulfa (Sulfonamide Allergy Unknown ITCHING Verified 04/12/19 11:27 Antibiotics) AND RASH oxycodone AdvReac Unknown CRYING Verified 04/12/19 11:27 Medications Home Medications Medication Instructions Recorded Confirmed Last Taken Flintstones with Iron 1 tab PO QAM 04/15/18 04/12/19 05/18/18 11:00 clonazepam 0.5 mg PO UD PRN 04/15/18 04/12/19 05/19/18 04:15 furosemide 40 mg PO UD PRN 04/15/18 04/12/19 05/18/18 11:00 levothyroxine 50 mcg PO HS 04/15/18 04/12/19 04/11/19 potassium chloride [Klor-Con 10] 10 meq PO UD PRN 04/15/18 04/12/19 05/18/18 11:00 meloxicam [Mobic] 15 mg PO DAILY #30 tab 05/20/18 04/12/19 Unknown calcium carbonate-vitamin D3 2 tab PO DAILY 04/12/19 04/12/19 Unknown [Calcium 600 + D(3)] Past Medical History Medical History Anxiety History of blood transfusion s/p childbirth Hypothyroidism Morbid obesity Osteoarthritis Exercise / Class Metabolic Activity III < 4 Walking/Shop/Light housework Past Family History Family History Unknown No problems noted. Grandmother Family history of diabetes mellitus Mother Family history of diabetes mellitus Brother Family history of lymphoma Past Surgical History Surgical History History of carpal tunnel release B/L History of section X2 History of colonoscopy History of herniorrhaphy UMBILICAL HERNIA REPAIR History of tonsillectomy History of total right knee replacement Past Anesthesia History No Family Hx of Anesthesia Complications (except mother PONV) and Other S/P right total knee arthroplasty: 05/19/18: SAB x3 at L4 + PNB at [facility] History of PONV No Hx of PONV and Hx of Motion Sickness (occasional) Social History Smoking Status: Never smoker Do You Dip or Chew Tobacco: No Hx Alcohol Use: No Hx Substance Use: No substance use type: does not use Review of Systems Patient denies chest pain, shortness of breath, reflux, cough, wheezing, palpitations. Physical Exam Vital Signs VITALS BP 113/70 P 64 TEMP 97.7 SP02 95%RA RESP 18 PHYSICAL Full neck and c-spine range of motion. Full TMJ range of motion. TMD 3 finger breaths Mallampati Score 3 Dentition: intact, cap on lower front and molar Lungs: clear throughout to auscultation Cardiac: regular rate and rhythm, no murmurs noted Spine: normal Carotid arteries: negative bruit Extremities: no edema Short neck Testing Laboratory Results 04/20/19 11:54 04/20/19 11:54 PT 10.9 Seconds (9.0-12.0) 04/20/19 11:54 INR 1.1 (0.9-1.1) 04/20/19 11:54 APTT 27.5 Seconds (21.0-31.0) 04/20/19 11:54 Hemoglobin A1c 6.2 % (4.5-5.6) H 04/20/19 11:54 Urine Color Yellow 04/20/19 Unknown Urine Appearance Clear (Clear) 04/20/19 Unknown Urine pH 5.0 (4.5-7.5) 04/20/19 Unknown Ur Specific [place] 1.033 (1.000-1.030) H 04/20/19 Unknown Urine Protein Negative (Negative) 04/20/19 Unknown Urine Glucose (UA) Negative (Negative) 04/20/19 Unknown Urine Ketones Negative (Negative) 04/20/19 Unknown Urine Nitrite Negative (Negative) 04/20/19 Unknown Ur Leukocyte Esterase Trace (Negative) H 04/20/19 Unknown Urine WBC (Auto) 10-30 /hpf (0-5) H 04/20/19 Unknown Urine RBC (Auto) 0-4 /hpf (0-4) 04/20/19 Unknown U Hyaline Cast (Auto) 1-5 /lpf (0-5) 04/20/19 Unknown U Epithel Cells (Auto) >30 /lpf (0-5) H 04/20/19 Unknown Urine Bacteria (Auto) Negative (Negative) 04/20/19 Unknown Blood Type A Positive 04/20/19 11:54 Antibody Screen NEGATIVE 04/20/19 11:54 Electrocardiogram Date: 04/20/19 NSr at 62bpm. "Normal ECG." *unconfirmed report* Chest X-Ray Date: 04/20/19 Unchanged cardiomegaly without acute process.
--- NOTE | 2019-04-20 12:29 | XRay Report ---
XR chest Pre-admission PA/Lat HISTORY: 69 years-old Female pat preoperative exam. No acute chest complaints COMPARISON: Chest radiograph 04/24/2018 TECHNIQUE: PA and lateral views of the chest FINDINGS: Unchanged cardiomegaly. No pneumothorax, pleural effusion, focal airspace consolidation or overt pulm onary edema. Degenerative changes of the shoulders and spine. IMPRESSION: Cardiomegaly without acute process. The above report was generated using voice recognition software. It may contain grammatical, syntax o r spelling errors. Electronically signed by: Elliott Tejada M.D. 04/20/2019 12:28 PM
[2019-04-20 12:55] LABS: Basophils # (auto) 0.01 K/uL (0-0.2); Basophils % (auto) 0.2 %; Eosinophils # (auto) 0.12 K/uL (0-0.5); Hematocrit (blood only) 40.6 % (37-47); Hemoglobin 13.1 g/dL (12.0-16.0); Immature Granulocytes # (auto) 0.02 K/uL (0.00-0.02); Immature Granulocytes % (auto) 0.3 %; Lymphocytes # (auto) 1.62 K/uL (1.2-3.4); Lymphocytes % (auto) 27.5 %; Mean Corpuscular Hemoglobin 31.5 pg (25-34); Mean Corpuscular Hgb Conc 32.3 g/dL (32-36); Mean Corpuscular Volume 97.6 fL (80-100); Mean Platelet Volume 10.6 fL (7.4-10.4); Monocytes # (auto) 0.53 K/uL (0.11-0.59); Neutrophils # (auto) 3.59 K/uL (1.4-6.5); Platelet Count 257 K/uL (130-400); RDW Coefficient of Variation 14.1 % (11.5-14.5); RDW Standard Deviation 50.6 fL (36.4-46.3); Red Blood Count 4.16 M/uL (4.2-5.4); White Blood Count 5.89 K/uL (4.8-10.8)
[2019-04-20 13:03] LABS: Albumin Level 3.7 gm/dl (3.4-5.0); BUN Creatinine Ratio 25.4 (10-20); Calcium 8.9 mg/dl (8.5-10.1); Creatinine Clr Calc Pharmacy 76.8 ml/min; Est GFR (African American) 89.8; Est GFR (Non-African American) 77.5; Potassium 4.2 mmol/L (3.5-5.1)
[2019-04-20 13:14] LABS: INR 1.1 (0.9-1.1); Partial Thromboplastin Time 27.5 Seconds (21.0-31.0); Prothrombin Time 10.9 Seconds (9.0-12.0)
[2019-04-20 13:17] LABS: Appearance Urine Clear (Clear); Bacteria Urine Automated Negative (Negative); Bilirubin Urine Negative (Negative); Blood Urine Negative (Negative); Color Urine Yellow; Epithelial Cell Urine Auto >30 /lpf (0-5); Glucose Urine UA Negative (Negative); Ketones Urine Negative (Negative); Leukocyte Esterase Urine Trace (Negative); Nitrite Urine Negative (Negative); Protein Urine Negative (Negative); RBC Urine Automated 0-4 /hpf (0-4); Specific Gravity Urine 1.033 (1.000-1.030); Urobilinogen Urine Negative (Negative)
[2019-04-20 14:01] LABS: Estimated Average Glucose 131 mg/dl; Hemoglobin A1C 6.2 % (4.5-5.6)
--- NOTE | 2019-05-03 08:23 | History & Physical Report ---
Date of Service May 03, 2019 date of surgery: 05/18/19 Assessment & Plan (1) Arthritis of knee, left: Further care discussed with patient and at this point in time has failed conservative measures and would like to proceed with a left total knee replacement. Plan on discharge will be home with home health physical therapy. DVT prophalaxis with TEDs, SCDs and will also place on aspirin 81 mg p.o. b.i.d. for a month postop. Patient will have follow up appointment in our office two weeks post op for staple/suture removal and re-evaluation. Patient otherwise has no other questions or concerns. History of Present Illness Chief Complaint: left knee pain Primary Care Provider: Bindu Hassan Nikky is a 69 year old female who complains of left knee pain, presents for pre-op evaluation prior to a left total knee replacement by dr Castillo at [facility]. She complains of pain, crepitus, decreased range of motion, instability and stiffness in her left knee. She states that the symptoms have been chronic and non-traumatic. she states that the symptoms occur constantly with intermittent worsening. Currently the patient states that the symptoms are moderate-severe. The pain is described as aching, sharp and throbbing. The symptoms occur continuously. The symptoms are aggravated by ascending stairs, daily activities, first steps while awake walking. Prior NSAIDs include Aleve. Prior pain medications include Tylenol. Nikky has been treated with previous cortisone and visco injections in the past without much relief. Allergies Allergy/AdvReac Type Severity Reaction Status Date / Time adhesive Allergy Unknown RASH WITH Verified 04/12/19 11:27 EXTENDED WEAR Egg Derived Allergy Unknown ALLERGY Verified 04/12/19 11:27 A CHILD (LIPS SWELLING & ITCHY) Sulfa (Sulfonamide Allergy Unknown ITCHING Verified 04/12/19 11:27 Antibiotics) AND RASH oxycodone AdvReac Unknown CRYING Verified 04/12/19 11:27 Home Medications Home Medications Medication Instructions Recorded Confirmed Type Flintstones with Iron 1 tab PO QAM 04/15/18 04/12/19 History clonazepam 0.5 mg PO UD PRN 04/15/18 04/12/19 History furosemide 40 mg PO UD PRN 04/15/18 04/12/19 History levothyroxine 50 mcg PO HS 04/15/18 04/12/19 History potassium chloride [Klor-Con 10] 10 meq PO UD PRN 04/15/18 04/12/19 History meloxicam [Mobic] 15 mg PO DAILY #30 tab 05/20/18 04/12/19 Rx calcium carbonate-vitamin D3 2 tab PO DAILY 04/12/19 04/12/19 History [Calcium 600 + D(3)] Past Med/Surg History Medical History Anxiety History of blood transfusion s/p childbirth Hypothyroidism Morbid obesity Osteoarthritis Surgical History History of carpal tunnel release B/L History of section X2 History of colonoscopy History of herniorrhaphy UMBILICAL HERNIA REPAIR History of tonsillectomy History of total right knee replacement Family History Unknown No problems noted. 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 Beliefs That Will Affect Care: None marital status: Current Living Situation: Spouse Other Information That Helps Us Care for You: No Feels Safe at Home: Yes Smoking Status: Never smoker Do You Dip or Chew Tobacco: No ; Second Hand Exposure: No ; Hx Alcohol Use: No Hx Substance Use: No Review of Systems Review of Systems: All systems reviewed & are unremarkable except as noted in HPI & below Constitutional: no fever, no chills and no sweats Respiratory: no cough and no dyspnea Cardiovascular: no chest pain, no dyspnea and no orthopnea Gastrointestinal: no abdominal pain, no nausea and no vomiting Musculoskeletal: as per Subjective / HPI Physical Exam Physical Exam: Ht: 5ft Wt: 107.8kg BP: 118/72 Pulse: 73 Constitutional: WD/WN, vitals as above no acute distress Respiratory: normal respiratory effort, lungs clear to auscultation no respiratory distress, no labored breathing and does not use accessory muscles Cardiovascular: RRR, no murmur, no edema Gastrointestinal (Abdomen): normal bowel sounds, soft, nontender, no hepatosplenomegaly Musculoskeletal: Knee: + knee abnormal to inspection (left knee-), + effusion (+1 effusion), + surgical incision (well healed portals), + limited ROM of knee (ROM 0/3/110), + knee ROM with crepitation, + joint line tenderness (medial joint line) and + Xiang's sign positive; no deformity, no skin erythema, no ecchymosis, no valgus laxity, no varus laxity, anterior drawer test negative, Alina's sign negative and pivot shift test negative Results & Data Laboratory Results Laboratory Results WBC 5.89 K/uL (4.8-10.8) 04/20/19 11:54 RBC 4.16 M/uL (4.2-5.4) L 04/20/19 11:54 Hgb 13.1 g/dL (12.0-16.0) 04/20/19 11:54 Hct 40.6 % (37-47) 04/20/19 11:54 MCV 97.6 fL (80-100) 04/20/19 11:54 MCH 31.5 pg (25-34) 04/20/19 11:54 MCHC 32.3 g/dL (32-36) 04/20/19 11:54 RDW Std Deviation 50.6 fL (36.4-46.3) H 04/20/19 11:54 RDW Coeff of Carmella 14.1 % (11.5-14.5) 04/20/19 11:54 Plt Count 257 K/uL (130-400) 04/20/19 11:54 MPV 10.6 fL (7.4-10.4) H 04/20/19 11:54 Immature Gran % (Auto) 0.3 % 04/20/19 11:54 Neut % (Auto) 61.0 % 04/20/19 11:54 Lymph % (Auto) 27.5 % 04/20/19 11:54 [place] % (Auto) 9.0 % 04/20/19 11:54 Eos % (Auto) 2.0 % 04/20/19 11:54 Baso % (Auto) 0.2 % 04/20/19 11:54 Immature Gran # (Auto) 0.02 K/uL (0.00-0.02) 04/20/19 11:54 Neut # (Auto) 3.59 K/uL (1.4-6.5) 04/20/19 11:54 Lymph # (Auto) 1.62 K/uL (1.2-3.4) 04/20/19 11:54 [place] # (Auto) 0.53 K/uL (0.11-0.59) 04/20/19 11:54 Eos # (Auto) 0.12 K/uL (0-0.5) 04/20/19 11:54 Baso # (Auto) 0.01 K/uL (0-0.2) 04/20/19 11:54 PT 10.9 Seconds (9.0-12.0) 04/20/19 11:54 INR 1.1 (0.9-1.1) 04/20/19 11:54 APTT 27.5 Seconds (21.0-31.0) 04/20/19 11:54 PTT Ratio 1.0 04/20/19 11:54 Sodium 138 mmol/L (136-145) 04/20/19 11:54 Potassium 4.2 mmol/L (3.5-5.1) 04/20/19 11:54 Chloride 107 mmol/L (98-107) 04/20/19 11:54 Carbon Dioxide 30 mmol/L (21-32) 04/20/19 11:54 Anion Gap 1.0 (3-11) L 04/20/19 11:54 BUN 20 mg/dl (7-18) H 04/20/19 11:54 Creatinine 0.79 mg/dl (0.6-1.2) 04/20/19 11:54 Est Cr Clr Drug Dosing 76.8 ml/min 04/20/19 11:54 Est GFR ( Amer) 89.8 04/20/19 11:54 Est GFR (Non-Af Amer) 77.5 04/20/19 11:54 BUN/Creatinine Ratio 25.4 (10-20) H 04/20/19 11:54 Glucose 154 mg/dl (70-99) H 04/20/19 11:54 Estimat Average Glucose 131 mg/dl 04/20/19 11:54 Hemoglobin A1c 6.2 % (4.5-5.6) H 04/20/19 11:54 Calcium 8.9 mg/dl (8.5-10.1) 04/20/19 11:54 Albumin 3.7 gm/dl (3.4-5.0) 04/20/19 11:54 Urine Color Yellow 04/20/19 Unknown Urine Appearance Clear (Clear) 04/20/19 Unknown Urine pH 5.0 (4.5-7.5) 04/20/19 Unknown Ur Specific [place] 1.033 (1.000-1.030) H 04/20/19 Unknown Urine Protein Negative (Negative) 04/20/19 Unknown Urine Glucose (UA) Negative (Negative) 04/20/19 Unknown Urine Ketones Negative (Negative) 04/20/19 Unknown Urine Blood Negative (Negative) 04/20/19 Unknown Urine Nitrite Negative (Negative) 04/20/19 Unknown Urine Bilirubin Negative (Negative) 04/20/19 Unknown Urine Urobilinogen Negative (Negative) 04/20/19 Unknown Ur Leukocyte Esterase Trace (Negative) H 04/20/19 Unknown Urine WBC (Auto) 10-30 /hpf (0-5) H 04/20/19 Unknown Urine RBC (Auto) 0-4 /hpf (0-4) 04/20/19 Unknown U Hyaline Cast (Auto) 1-5 /lpf (0-5) 04/20/19 Unknown U Epithel Cells (Auto) >30 /lpf (0-5) H 04/20/19 Unknown Urine Bacteria (Auto) Negative (Negative) 04/20/19 Unknown Blood Type A Positive 04/20/19 11:54 Antibody Screen NEGATIVE 04/20/19 11:54 Diagnostic Findings Left Knee X-ray: left knee series confirm advanced degenerative changes to the left knee, greatest medial compartments and patellofemoral joint, showing joint space narrowing, osteophyte formation and subchondral sclerosis. no acute bony pathology noted.
--- NOTE | 2019-06-07 10:29 | History & Physical Report ---
Date of Service June 07, 2019 date of surgery: 06-22-19 Assessment & Plan (1) Arthritis of knee, left: Further care discussed with patient and at this point in time has failed conservative measures and would like to proceed with a left total knee replacement. Plan on discharge will be home with home health physical therapy. DVT prophalaxis with TEDs, SCDs and will also place on aspirin 81 mg p.o. b.i.d. for a month postop. Patient will have follow up appointment in our office two weeks post op for staple/suture removal and re-evaluation. Patient otherwise has no other questions or concerns. History of Present Illness Chief Complaint: left knee pain Primary Care Provider: Bindu Hassan Nikky is a 69 year old female who complains of left knee pain, presents for pre-op evaluation prior to a left total knee replacement by dr Castillo at [facility]. She complains of pain, crepitus, decreased range of motion, instability and stiffness in her left knee. She states that the symptoms have been chronic and non-traumatic. she states that the symptoms occur constantly with intermittent worsening. Currently the patient states that the symptoms are moderate-severe. The pain is described as aching, sharp and throbbing. The symptoms occur continuously. The symptoms are aggravated by ascending stairs, daily activities, first steps while awake walking. Prior NSAIDs include Aleve. Prior pain medications include Tylenol. Nikky has been treated with previous cortisone and visco injections in the past without much relief. Allergies Allergy/AdvReac Type Severity Reaction Status Date / Time adhesive Allergy Unknown RASH WITH Verified 04/12/19 11:27 EXTENDED WEAR Egg Derived Allergy Unknown ALLERGY Verified 04/12/19 11:27 A CHILD (LIPS SWELLING & ITCHY) Sulfa (Sulfonamide Allergy Unknown ITCHING Verified 04/12/19 11:27 Antibiotics) AND RASH oxycodone AdvReac Unknown CRYING Verified 04/12/19 11:27 Home Medications Home Medications Medication Instructions Recorded Confirmed Type Flintstones with Iron 1 tab PO QAM 04/15/18 04/12/19 History clonazepam 0.5 mg PO UD PRN 04/15/18 04/12/19 History furosemide 40 mg PO UD PRN 04/15/18 04/12/19 History levothyroxine 50 mcg PO HS 04/15/18 04/12/19 History potassium chloride [Klor-Con 10] 10 meq PO UD PRN 04/15/18 04/12/19 History meloxicam [Mobic] 15 mg PO DAILY #30 tab 05/20/18 04/12/19 Rx calcium carbonate-vitamin D3 2 tab PO DAILY 04/12/19 04/12/19 History [Calcium 600 + D(3)] Past Med/Surg History Medical History Anxiety History of blood transfusion s/p childbirth Hypothyroidism Morbid obesity Osteoarthritis Surgical History History of carpal tunnel release B/L History of section X2 History of colonoscopy History of herniorrhaphy UMBILICAL HERNIA REPAIR History of tonsillectomy History of total right knee replacement Family History Unknown No problems noted. 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 Beliefs That Will Affect Care: None marital status: Current Living Situation: Spouse Other Information That Helps Us Care for You: No Feels Safe at Home: Yes Smoking Status: Never smoker Do You Dip or Chew Tobacco: No ; Second Hand Exposure: No ; Hx Alcohol Use: No Hx Substance Use: No Review of Systems Review of Systems: All systems reviewed & are unremarkable except as noted in HPI & below Constitutional: no fever, no chills and no sweats Respiratory: no cough and no dyspnea Cardiovascular: no chest pain, no dyspnea and no orthopnea Gastrointestinal: no abdominal pain, no nausea and no vomiting Musculoskeletal: as per Subjective / HPI Physical Exam Physical Exam: Ht: 5ft Wt: 107.8 kg BP: 118/72 Pulse: 70 Constitutional: WD/WN, vitals as above no acute distress Respiratory: normal respiratory effort, lungs clear to auscultation no respiratory distress, no labored breathing and does not use accessory muscles Cardiovascular: RRR, no murmur, no edema Gastrointestinal (Abdomen): normal bowel sounds, soft, nontender, no hepatosplenomegaly Musculoskeletal: Knee: + knee abnormal to inspection (left knee), + effusion (+1 effusion), + surgical incision (well healed portals), + limited ROM of knee (ROM 0/3/110), + knee ROM with crepitation, + joint line tenderness (medial joint line) and + Xiang's sign positive; no deformity, no skin erythema, no ecchymosis, no valgus laxity, no varus laxity, anterior drawer test negative, Alina's sign negative and pivot shift test negative Results & Data Laboratory Results Laboratory Results WBC 5.89 K/uL (4.8-10.8) 04/20/19 11:54 RBC 4.16 M/uL (4.2-5.4) L 04/20/19 11:54 Hgb 13.1 g/dL (12.0-16.0) 04/20/19 11:54 Hct 40.6 % (37-47) 04/20/19 11:54 MCV 97.6 fL (80-100) 04/20/19 11:54 MCH 31.5 pg (25-34) 04/20/19 11:54 MCHC 32.3 g/dL (32-36) 04/20/19 11:54 RDW Std Deviation 50.6 fL (36.4-46.3) H 04/20/19 11:54 RDW Coeff of Carmella 14.1 % (11.5-14.5) 04/20/19 11:54 Plt Count 257 K/uL (130-400) 04/20/19 11:54 MPV 10.6 fL (7.4-10.4) H 04/20/19 11:54 Immature Gran % (Auto) 0.3 % 04/20/19 11:54 Neut % (Auto) 61.0 % 04/20/19 11:54 Lymph % (Auto) 27.5 % 04/20/19 11:54 [place] % (Auto) 9.0 % 04/20/19 11:54 Eos % (Auto) 2.0 % 04/20/19 11:54 Baso % (Auto) 0.2 % 04/20/19 11:54 Immature Gran # (Auto) 0.02 K/uL (0.00-0.02) 04/20/19 11:54 Neut # (Auto) 3.59 K/uL (1.4-6.5) 04/20/19 11:54 Lymph # (Auto) 1.62 K/uL (1.2-3.4) 04/20/19 11:54 [place] # (Auto) 0.53 K/uL (0.11-0.59) 04/20/19 11:54 Eos # (Auto) 0.12 K/uL (0-0.5) 04/20/19 11:54 Baso # (Auto) 0.01 K/uL (0-0.2) 04/20/19 11:54 PT 10.9 Seconds (9.0-12.0) 04/20/19 11:54 INR 1.1 (0.9-1.1) 04/20/19 11:54 APTT 27.5 Seconds (21.0-31.0) 04/20/19 11:54 PTT Ratio 1.0 04/20/19 11:54 Sodium 138 mmol/L (136-145) 04/20/19 11:54 Potassium 4.2 mmol/L (3.5-5.1) 04/20/19 11:54 Chloride 107 mmol/L (98-107) 04/20/19 11:54 Carbon Dioxide 30 mmol/L (21-32) 04/20/19 11:54 Anion Gap 1.0 (3-11) L 04/20/19 11:54 BUN 20 mg/dl (7-18) H 04/20/19 11:54 Creatinine 0.79 mg/dl (0.6-1.2) 04/20/19 11:54 Est Cr Clr Drug Dosing 76.8 ml/min 04/20/19 11:54 Est GFR ( Amer) 89.8 04/20/19 11:54 Est GFR (Non-Af Amer) 77.5 04/20/19 11:54 BUN/Creatinine Ratio 25.4 (10-20) H 04/20/19 11:54 Glucose 154 mg/dl (70-99) H 04/20/19 11:54 Estimat Average Glucose 131 mg/dl 04/20/19 11:54 Hemoglobin A1c 6.2 % (4.5-5.6) H 04/20/19 11:54 Calcium 8.9 mg/dl (8.5-10.1) 04/20/19 11:54 Albumin 3.7 gm/dl (3.4-5.0) 04/20/19 11:54 Urine Color Yellow 04/20/19 Unknown Urine Appearance Clear (Clear) 04/20/19 Unknown Urine pH 5.0 (4.5-7.5) 04/20/19 Unknown Ur Specific [place] 1.033 (1.000-1.030) H 04/20/19 Unknown Urine Protein Negative (Negative) 04/20/19 Unknown Urine Glucose (UA) Negative (Negative) 04/20/19 Unknown Urine Ketones Negative (Negative) 04/20/19 Unknown Urine Blood Negative (Negative) 04/20/19 Unknown Urine Nitrite Negative (Negative) 04/20/19 Unknown Urine Bilirubin Negative (Negative) 04/20/19 Unknown Urine Urobilinogen Negative (Negative) 04/20/19 Unknown Ur Leukocyte Esterase Trace (Negative) H 04/20/19 Unknown Urine WBC (Auto) 10-30 /hpf (0-5) H 04/20/19 Unknown Urine RBC (Auto) 0-4 /hpf (0-4) 04/20/19 Unknown U Hyaline Cast (Auto) 1-5 /lpf (0-5) 04/20/19 Unknown U Epithel Cells (Auto) >30 /lpf (0-5) H 04/20/19 Unknown Urine Bacteria (Auto) Negative (Negative) 04/20/19 Unknown Blood Type A Positive 04/20/19 11:54 Antibody Screen NEGATIVE 04/20/19 11:54 Diagnostic Findings left knee series confirm advanced degenerative changes to the left knee, greatest medial compartments and patellofemoral joint, showing joint space narrowing, osteophyte formation and subchondral sclerosis. no acute bony pathology noted.
[2019-06-10 14:26] LABS: Basophils # (auto) 0.02 K/uL (0-0.2); Basophils % (auto) 0.3 %; Eosinophils # (auto) 0.23 K/uL (0-0.5); Eosinophils % (auto) 3.2 %; Hemoglobin 12.6 g/dL (12.0-16.0); Immature Granulocytes # (auto) 0.03 K/uL (0.00-0.02); Immature Granulocytes % (auto) 0.4 %; Lymphocytes # (auto) 1.85 K/uL (1.2-3.4); Lymphocytes % (auto) 26.1 %; Mean Corpuscular Hgb Conc 31.5 g/dL (32-36); Mean Corpuscular Volume 98.5 fL (80-100); Mean Platelet Volume 10.4 fL (7.4-10.4); Monocytes # (auto) 0.78 K/uL (0.11-0.59); Neutrophils # (auto) 4.17 K/uL (1.4-6.5); Platelet Count 273 K/uL (130-400); RDW Coefficient of Variation 14.6 % (11.5-14.5); RDW Standard Deviation 52.8 fL (36.4-46.3); Red Blood Count 4.06 M/uL (4.2-5.4); White Blood Count 7.08 K/uL (4.8-10.8)
[2019-06-10 14:45] LABS: Partial Thromboplastin Time 26.8 Seconds (21.0-31.0); Prothrombin Time 10.6 Seconds (9.0-12.0)
[2019-06-10 14:46] LABS: Appearance Urine Clear (Clear); Bacteria Urine Automated Negative (Negative); Bilirubin Urine Negative (Negative); Blood Urine Negative (Negative); Color Urine Yellow; Epithelial Cell Urine Auto >30 /lpf (0-5); Glucose Urine UA Negative (Negative); Ketones Urine Negative (Negative); Leukocyte Esterase Urine Trace (Negative); Nitrite Urine Negative (Negative); Protein Urine Negative (Negative); RBC Urine Automated 0-4 /hpf (0-4); Specific Gravity Urine 1.021 (1.000-1.030); Urobilinogen Urine Negative (Negative)
[2019-06-10 15:01] LABS: Albumin Level 3.6 gm/dl (3.4-5.0); Blood Urea Nitrogen 16 mg/dl (7-18); Carbon Dioxide 32 mmol/L (21-32); Chloride 104 mmol/L (98-107); Est GFR (African American) 88.4; Est GFR (Non-African American) 76.3; Glucose 107 mg/dl (70-99); Sodium 139 mmol/L (136-145)
[2019-06-22] MEDS ORDERED: TRANEXAMIC ACID 1,000 MG **IV Intra-op IV SCH (06:00)
[2019-06-22] MEDS ORDERED: ROPIVACAINE 0.5% HCL/PF 150 MG, BUPIVACAINE 0.5% MPF 30 ML, EPINEPHrine 30MG/30ML (OR U... INSTIL SCH (06:00)
[2019-06-22] MEDS ORDERED: ACETAMINOPHEN 500 MG TAB PO SCH (06:00)
[2019-06-22] MEDS ORDERED: CEFAZOLIN 2000MG 2,000 MG/15 ML SYR IV SCH (06:00)
[2019-06-22] MEDS ORDERED: TRANEXAMIC ACID 1,000 MG **IV Pre-op IV SCH (06:00)
[2019-06-22] MEDS ORDERED: LR 500ML BOLUS, THEN 15ML/HR IV SCH (06:00)
[2019-06-22] MEDS ORDERED: GABAPENTIN 300 MG CAP PO SCH (06:00)
[2019-06-22] MEDS: CeleBREX 200 MG CAP PO SCH ×2 (06:05→15:11)
[2019-06-22] MEDS ORDERED: BUPIVACAINE/EPINEPHRINE 0.25% 1:200,000 30 ML VIAL ONE (06:21)
[2019-06-22] MEDS ORDERED: BUPIVACAINE 0.5 % 5 MG/1 ML PF 10ML VIAL ONE (06:21)
[2019-06-22] MEDS ORDERED: LIDOCAINE HCL 2% 2 ML VIAL/AMP(20MG/ML) INFIL ONE (06:26)
[2019-06-22] MEDS ORDERED: ONDANSETRON INJ 2 MG/ML 2 ML VIAL ONE (06:26)
[2019-06-22] MEDS ORDERED: MIDAZOLAM HCL 1 MG/ML 2ML VIAL ONE ×2 (06:26→07:19)
[2019-06-22] MEDS ORDERED: PROPOFOL IV EMULSION 10 MG/ML 20 ML VIAL IV ONE ×2 (06:26→08:47)
[2019-06-22] MEDS ORDERED: ATROPINE SULFATE 0.1 MG/ML 10ML SYR IV PRN (06:51)
[2019-06-22] MEDS ORDERED: ONDANSETRON INJ 2 MG/ML 2 ML VIAL IV PRN ×2 (06:51→10:11)
[2019-06-22] MEDS ORDERED: PROMETHAZINE HCL 12.5 MG in SODIUM CHLORIDE 0.9% 50 ML IV PRN (06:51)
[2019-06-22] MEDS ORDERED: ePHEDrine sulfate 50 MG/ML AMP IV PRN (06:51)
[2019-06-22] MEDS ORDERED: HYDROmorphone INJ 2 MG/ML SYR/VIAL IV PRN (06:51)
[2019-06-22] MEDS ORDERED: fentaNYL citrate 100 MCG/2 ML VIAL IV PRN (06:51)
[2019-06-22] MEDS ORDERED: ORTHO JOINT ANESTHETIC ONE (07:03)
[2019-06-22] MEDS ORDERED: BACITRACIN INJ 50,000 UNIT VIAL ONE (07:03)
--- NOTE | 2019-06-22 07:16 | History & Physical Bridge Note ---
Date of Service June 22, 2019 History & Physical Bridge Note I have examined the patient, reviewed the History & Physical and in the interval since the performance of the History & Physical I have noted the following changes of clinical significance: no changes noted
--- NOTE | 2019-06-22 08:36 | Operative Report ---
Post Operative Report Pre & Post Diagnosis Operation Date: 06/22/19 07:15 Pre-Op Diagnosis: Unilateral Primary Osteoarthritis, Left Knee Post-Op Diagnosis: Unilateral Primary Osteoarthritis, Left Knee I identified the patient and participated in the time-out.: Yes Procedure Operation Date: 06/22/19 07:15 Actual Procedures p Left Total Knee Arthroplasty(Left) utilizing Jennings & NephElastra journey 2 patient matched total knee arthroplasty size 4 femur 3 tibia 10 polyethylene 29 oval patella- Quan Castillo DO Surgeon Quan Castillo DO Machine Tool Builder SAMANTHA Suggs Estimated Blood Loss 5 Findings Consistent with Post-Op Diagnosis Patient presents with severe end-stage DJD subchondral cystic changes marginal osteophytes sclerosis [id number] varus alignment moderate to large effusion nonresponsive to conservative management Specimens Bone and cartilage Drains Medium bore Hemovac Anesthesia Type General Regional Complications none Disposition Accompanied Patient To Recovery: No Disposition: Recovery Room Indications Patient presents with severe end-stage DJD failed attempted conservative management clinic physical therapy anti-inflammatories relative rest activity modification corticosteroid injection Visco supplementation the above intraoperative findings were noted. Description of Procedure After proper prepping and draping of the left lower extremity anterior midline incision was made over the region of the extensor extensor mechanism after meticulous hemostasis was obtained and maintained in subcutaneous tissues a medial parapatellar incision was made The patella was subluxed lateralward the medial lateral gutter were cleaned from any hypertrophic synovitis and scar tissue of the distal femoral block was placed and the distal femoral osteotomy cut was made subsequently the chamfers anterior and posterior osteotomy cuts were made utilizing the 4-in-1 block the tibia was subsequently subluxed anteriorward medial and ateral meniscal remnants were excised in their entirety remnants of the anterior and posterior cruciate ligaments were excised in their entirety excellent exposure of the proximal tibia was obtained the tibial osteotomy guide was placed on the proximal tibial osteotomy cut was made once again the knee was irrigated with copious amounts of sterile saline solution the patella was subsequently everted lateralward thickened scar tissue around the patella was removed the patella was subsequently cut utilizing a freehand technique and was drilled prepared for final preparation and placement of patella socially flexion-extension gaps were checked and the equal and symmetric trials were placed to the appropriate femoral and tibial trials with poly-spacer being placed for equal flexion and extension gaps and full range of motion including extension to 0 and flexion to 140 the trial components after having been taken to recovery range of motion was subsequently removed meticulous hemostasis was obtained and maintained subsequently a knee block injection of joint cocktail including ropivacaine 0.5% 150 mg. Bupivacaine 0.5% epinephrine 1-200,030 mL's toradol 30 mg dexamethasone 4 mg ketamine 10 mg clonidine 100 micrograms normal saline solution 30 mg was infiltrated into the soft tissues of the posterior knee medial lateral gutters and periosteal synovium special attention was paid to protect neurovascular structures at all times subsequently trial components having been removed the knee was irrigated with sterile saline solution. debris was removed the proximal tibia was subsequently prepared and was made ready for the placement of the tibial component tibial component was also cemented and tamped into position the femoral component was subsequently placed and cemented in the position the patellar component was subsequently cemented in position because hemostasis once again obtained and maintained wound having been thoroughly irrigated with debridement and debridement lavage was performed as well as a medial parapatellar incision closed with #1 Vicryl in interrupted fashion subcutaneous was closed with #2 Vicryl skin was closed with skin clips. PA-C was necessary for prepping and drapping as well as wound closure of deep fascia Sub cutaneous tissue and skin and was necessary for the case. A sterile compressive dressing was placed patient was taken to recovery in stable condition of report dictated by Jonathan I attest to the content of the Intraoperative Record and any orders documented therein. Any exceptions are noted below. I attest to the content of the Intraoperative Record and any orders documented therein. Any exceptions are noted below.
--- NOTE | 2019-06-22 09:52 | XRay Report ---
XR knee LT 1 or 2V routine CLINICAL HISTORY: Surgical Post Op COMPARISON: None. DISCUSSION: Anatomic alignment posttotal left knee arthroplasty. Could contact between prosthetic and underlying bone. Soft tissue postoperative changes as expected are present. IMPRESSION: Anatomic alignment posttotal left knee arthroplasty. ACT 112: Negative or not required by law. The above report was generated using voice recognition software. It may contain grammatical, syntax or spelling errors. Electronically signed by: Yovany Bautista M.D. 06/22/2019 9:50 AM
[2019-06-22] MEDS ORDERED: METOCLOPRAMIDE HCL INJ 5 MG/ML 2 ML VIAL IV PRN (10:11)
[2019-06-22] MEDS ORDERED: NALOXONE HCL 0.4 MG/1 ML VIAL/CARP IV PRN (10:11)
[2019-06-22] MEDS ORDERED: MAGNESIUM HYDROXIDE SUSP 30 ML UDC PO PRN (10:11)
[2019-06-22] MEDS ORDERED: HYDROmorphone INJ 1 MG/ML SYRINGE IV PRN (10:11)
[2019-06-22] MEDS ORDERED: bisacodyL 10 MG SUPP PR PRN (10:11)
[2019-06-22] MEDS ORDERED: POTASSIUM CHLORIDE 10 MEQ TABCR PO PRN (10:11)
[2019-06-22] MEDS ORDERED: clonazePAM 0.5 MG TAB PO PRN (10:11)
[2019-06-22] MEDS: SODIUM CHLORIDE 0.9% 1000ML 1,000 ML IV SCH ×2 (10:28→20:02)
--- NOTE | 2019-06-22 10:36 | Anesthesiology Progress Note ---
Date of Service June 22, 2019 Anesthesia Post Procedure Vital Signs Vital Signs: Temp Pulse Pulse Resp BP Pulse Ox 06/22/19 10:10 36.5 C 69 19 118/60 96 06/22/19 10:00 36.4 C L 73 16 113/56 L 98 06/22/19 09:50 76 19 113/64 96 06/22/19 09:40 74 18 110/60 100 06/22/19 09:30 79 20 119/62 100 06/22/19 09:20 89 19 97/61 L 99 06/22/19 09:13 36.8 C 85 20 104/59 L 99 06/22/19 05:25 36.6 C 78 20 119/78 93 Pain Intensity Left Knee: Pain Intensity: 0 Transfer of Care Handoff Completed per policy Notes Mental Status: alert / awake / arousable and participated in evaluation Patient Amnestic to Procedure: Yes Nausea / Vomiting: adequately controlled Pain: adequately controlled Airway Patency, RR, SpO2: stable & adequate BP & HR: stable & adequate Hydration State: stable & adequate Anesthetic Complications: no major complications apparent and Pt Satisfied with anesthetic care
[2019-06-22] MEDS ORDERED: PHENYLEPHRINE 100MCG/ML 5ML SYR ONE (10:44)
[2019-06-22] MEDS ORDERED: ePHEDrine sulfate 50 MG/ML SYR ONE (10:44)
[2019-06-22] MEDS: KETOROLAC TROMETHAMINE 15 MG/ML VIAL IV SCH ×2 (11:29→18:48)
[2019-06-22] MEDS: ACETAMINOPHEN 500 MG TAB PO SCH ×2 (13:52→22:17)
[2019-06-22] MEDS: CEFAZOLIN 2000MG 2,000 MG/15 ML SYR IV SCH (15:44)
[2019-06-22] MEDS: OXYCODONE HCL IR 5 MG TAB (IMMEDIATE RELEASE) PO PRN (15:47)
[2019-06-22] MEDS: ASPIRIN 81 MG ECTAB PO SCH (20:04)
[2019-06-22] MEDS: DOCUSATE SODIUM 100 MG CAP PO SCH (20:05)
[2019-06-22] MEDS ORDERED: LEVOTHYROXINE SODIUM 50 MCG TABLET PO SCH (21:00)
[2019-06-22] MEDS ORDERED: SENNA 8.6 MG TAB PO SCH (21:00)
[2019-06-23] MEDS: OXYCODONE HCL IR 5 MG TAB (IMMEDIATE RELEASE) PO PRN ×3 (00:16→12:49)
[2019-06-23] MEDS: CEFAZOLIN 2000MG 2,000 MG/15 ML SYR IV SCH (00:16)
[2019-06-23] MEDS: KETOROLAC TROMETHAMINE 15 MG/ML VIAL IV SCH ×2 (00:18→05:41)
[2019-06-23] MEDS: ACETAMINOPHEN 500 MG TAB PO SCH (05:40)
[2019-06-23 06:52] LABS: Hematocrit (blood only) 34.1 % (37-47); Hemoglobin 10.7 g/dL (12.0-16.0); Mean Corpuscular Hemoglobin 31.1 pg (25-34); Mean Corpuscular Hgb Conc 31.4 g/dL (32-36); Mean Corpuscular Volume 99.1 fL (80-100); Mean Platelet Volume 9.8 fL (7.4-10.4); Platelet Count 203 K/uL (130-400); RDW Coefficient of Variation 14.6 % (11.5-14.5); RDW Standard Deviation 52.7 fL (36.4-46.3); Red Blood Count 3.44 M/uL (4.2-5.4); White Blood Count 10.78 K/uL (4.8-10.8)
[2019-06-23 07:20] LABS: Calcium 8.4 mg/dl (8.5-10.1); Creatinine Clr Calc Pharmacy 65.9 ml/min; Est GFR (African American) 74.7; Est GFR (Non-African American) 64.4; Potassium 4.2 mmol/L (3.5-5.1)
[2019-06-23] MEDS: DOCUSATE SODIUM 100 MG CAP PO SCH (08:03)
[2019-06-23] MEDS: ASPIRIN 81 MG ECTAB PO SCH (08:03)
[2019-06-23] MEDS ORDERED: CALCIUM 600MG + VIT D 400 IU TAB PO SCH (09:00)
[2019-06-23] MEDS ORDERED: MULTIVITAMIN TAB PO SCH (09:00)
--- NOTE | 2019-06-23 09:25 | Orthopedic Progress Note ---
Date of Service June 23, 2019 Assessment & Plan (1) History of total left knee replacement: POD #1 s/p Left TKA pt/ot dvt proph with SHUKRI/SCD/ASA plan for d/c home with HHPT after PT today Admission and Anticipated Discharge Date Admission Date: June 22, 2019 Subjective POD #1 s/p Left TKA Review of Systems Constitutional: no fever, no chills and no sweats Respiratory: no cough and no dyspnea Cardiovascular: no chest pain and no dyspnea Gastrointestinal: no abdominal pain, no nausea and no vomiting Physical Exam Physical Exam: Vital Signs Temp 36.6 C 06/23/19 07:57 Pulse 68 06/23/19 07:57 Resp 20 06/23/19 07:57 BP 106/68 06/23/19 07:57 Pulse Ox 95 06/23/19 07:57 Intake & Output 06/22/19 06/23/19 06/23/19 18:59 06:59 18:59 Intake Total 1340 / 4028.334 2688.334 / 4028.33 4 Output Total 725 / 2155 1430 / 2155 Balance 615 / 5889.474 5151.334 / 1873.33 4 Intake: IV 200 / 2048.334 1848.334 / 2048.33 4 Lr 1,000 ml @ 15 mls/hr IV . 0 / 0 Q24H [facility] Rx#:[id number] Nss 1000ML 1,0 00 ml @ 100 mls/ 1848.334 / 1848.33 4 hr IV .Q10H [facility] Rx#:[id number] TRANEXAMIC ACI D / 0.7% NACL 1, 200 / 200 000 mg In 100 ml @ 600 mls/hr IV TODAY@0600 [facility] Rx#:[id number] IV Perioperative 900 / 900 Oral 240 / 1080 840 / 1080 Output: Urine 650 / 1880 1230 / 1880 Estimated Blood Loss 5 / 5 Drain Output 70 / 270 200 / 270 Left Knee Hemo vac 70 / 270 200 / 270 Other: # Unmeasured Voi ds 1 1 Constitutional: WD/WN, vitals as above no acute distress Musculoskeletal: Left Leg: NVDI, calf SNT, negative cherrie sign. DP palpable, able to wiggle toes/ankle movement without difficulty. dressing clean dry and intact. Results & Data ([facility]) Vital Signs (Past 12 Hours) Vital Signs Temp Pulse Pulse Resp BP Pulse Ox 06/23/19 07:57 36.6 C 68 20 106/68 95 06/23/19 07:00 36.5 C 68 18 116/67 94 06/23/19 03:10 36.7 C 64 16 108/64 94 06/22/19 23:31 36.8 C 72 16 103/66 95 Laboratory Results Laboratory Results WBC 10.78 K/uL (4.8-10.8) 06/23/19 06:35 RBC 3.44 M/uL (4.2-5.4) L 06/23/19 06:35 Hgb 10.7 g/dL (12.0-16.0) L 06/23/19 06:35 Hct 34.1 % (37-47) L 06/23/19 06:35 MCV 99.1 fL (80-100) 06/23/19 06:35 MCH 31.1 pg (25-34) 06/23/19 06:35 MCHC 31.4 g/dL (32-36) L 06/23/19 06:35 RDW Std Deviation 52.7 fL (36.4-46.3) H 06/23/19 06:35 RDW Coeff of Carmella 14.6 % (11.5-14.5) H 06/23/19 06:35 Plt Count 203 K/uL (130-400) 06/23/19 06:35 MPV 9.8 fL (7.4-10.4) 06/23/19 06:35 Immature Gran % (Auto) 0.4 % 06/10/19 13:10 Neut % (Auto) 59.0 % 06/10/19 13:10 Lymph % (Auto) 26.1 % 06/10/19 13:10 [place] % (Auto) 11.0 % 06/10/19 13:10 Eos % (Auto) 3.2 % 06/10/19 13:10 Baso % (Auto) 0.3 % 06/10/19 13:10 Immature Gran # (Auto) 0.03 K/uL (0.00-0.02) H 06/10/19 13:10 Neut # (Auto) 4.17 K/uL (1.4-6.5) 06/10/19 13:10 Lymph # (Auto) 1.85 K/uL (1.2-3.4) 06/10/19 13:10 [place] # (Auto) 0.78 K/uL (0.11-0.59) H 06/10/19 13:10 Eos # (Auto) 0.23 K/uL (0-0.5) 06/10/19 13:10 Baso # (Auto) 0.02 K/uL (0-0.2) 06/10/19 13:10 PT 10.6 Seconds (9.0-12.0) 06/10/19 13:10 INR 1.0 (0.9-1.1) 06/10/19 13:10 APTT 26.8 Seconds (21.0-31.0) 06/10/19 13:10 PTT Ratio 1.0 06/10/19 13:10 Sodium 138 mmol/L (136-145) 06/23/19 06:35 Potassium 4.2 mmol/L (3.5-5.1) 06/23/19 06:35 Chloride 107 mmol/L (98-107) 06/23/19 06:35 Carbon Dioxide 28 mmol/L (21-32) 06/23/19 06:35 Anion Gap 4.0 (3-11) 06/23/19 06:35 BUN 21 mg/dl (7-18) H 06/23/19 06:35 Creatinine 0.92 mg/dl (0.6-1.2) 06/23/19 06:35 Est Cr Clr Drug Dosing 65.9 ml/min 06/23/19 06:35 Est GFR ( Amer) 74.7 06/23/19 06:35 Est GFR (Non-Af Amer) 64.4 06/23/19 06:35 BUN/Creatinine Ratio 23.0 (10-20) H 06/23/19 06:35 Glucose 158 mg/dl (70-99) H 06/23/19 06:35 Estimat Average Glucose 131 mg/dl 04/20/19 11:54 Hemoglobin A1c 6.2 % (4.5-5.6) H 04/20/19 11:54 Calcium 8.4 mg/dl (8.5-10.1) L 06/23/19 06:35 Albumin 3.6 gm/dl (3.4-5.0) 06/10/19 13:10 Urine Color Yellow 06/10/19 13:10 Urine Appearance Clear (Clear) 06/10/19 13:10 Urine pH 7.0 (4.5-7.5) 06/10/19 13:10 Ur Specific [place] 1.021 (1.000-1.030) 06/10/19 13:10 Urine Protein Negative (Negative) 06/10/19 13:10 Urine Glucose (UA) Negative (Negative) 06/10/19 13:10 Urine Ketones Negative (Negative) 06/10/19 13:10 Urine Blood Negative (Negative) 06/10/19 13:10 Urine Nitrite Negative (Negative) 06/10/19 13:10 Urine Bilirubin Negative (Negative) 06/10/19 13:10 Urine Urobilinogen Negative (Negative) 06/10/19 13:10 Ur Leukocyte Esterase Trace (Negative) H 06/10/19 13:10 Urine WBC (Auto) 1-5 /hpf (0-5) 06/10/19 13:10 Urine RBC (Auto) 0-4 /hpf (0-4) 06/10/19 13:10 U Hyaline Cast (Auto) 5-10 /lpf (0-5) H 06/10/19 13:10 U Epithel Cells (Auto) >30 /lpf (0-5) H 06/10/19 13:10 Urine Bacteria (Auto) Negative (Negative) 06/10/19 13:10 Blood Type A Positive 04/20/19 11:54 Antibody Screen NEGATIVE 04/20/19 11:54 Diagnostic Findings XR knee LT 1 or 2V routine CLINICAL HISTORY: Surgical Post Op COMPARISON: None. DISCUSSION: Anatomic alignment posttotal left knee arthroplasty. Could contact between prosthetic and underlying bone. Soft tissue postoperative changes as expected are present. IMPRESSION: Anatomic alignment posttotal left knee arthroplasty.
--- NOTE | 2019-06-23 09:34 | Discharge Summary ---
Date of Service date of discharge: June 23, 2019 date of admission: 06-22-19 Admission HPI Per Admitting Provider Nikky is a 69 year old female who complains of left knee pain, presents for pre- op evaluation prior to a left total knee replacement by dr Castillo at [facility]. She complains of pain, crepitus, decreased range of motion, instability and stiffness in her left knee. She states that the symptoms have been chronic and non-traumatic. she states that the symptoms occur constantly with intermittent worsening. Currently the patient states that the symptoms are moderate-severe. The pain is described as aching, sharp and throbbing. The symptoms occur continuously. The symptoms are aggravated by ascending stairs, daily activities, first steps while awake walking. Prior NSAIDs include Aleve. Prior pain medications include Tylenol. Nikky has been treated with previous cortisone and visco injections in the past without much relief. Principal Diagnosis left knee osteoarthritis Discharge Exam Vital Signs Temp 36.6 C 06/23/19 07:57 Pulse 68 06/23/19 07:57 Resp 20 06/23/19 07:57 BP 106/68 06/23/19 07:57 Pulse Ox 95 06/23/19 07:57 Intake & Output 06/22/19 06/23/19 06/23/19 18:59 06:59 18:59 Intake Total 1340 / 4028.334 2688.334 / 4028.334 360 / 360 Output Total 725 / 2155 1430 / 2155 Balance 615 / 4861.045 4132.334 / 1873.334 360 / 360 Intake: IV 200 / 2048.334 1848.334 / 2048.334 Lr 1,000 ml @ 15 mls/hr IV . 0 / 0 Q24H [facility] Rx#:[id number] Nss 1000ML 1,000 ml @ 100 mls/ 1848.334 / 1848.334 hr IV .Q10H [facility] Rx#:[id number] TRANEXAMIC ACID / 0.7% NACL 1, 200 / 200 000 mg In 100 ml @ 600 mls/hr IV TODAY@0600 [facility] Rx#:[id number] IV Perioperative 900 / 900 Oral 240 / 1080 840 / 1080 360 / 360 Output: Urine 650 / 1880 1230 / 1880 Estimated Blood Loss 5 / 5 Drain Output 70 / 270 200 / 270 Left Knee Hemovac 70 / 270 200 / 270 Other: # Unmeasured Voids 1 1 Constitutional WD/WN, vitals as above no acute distress Musculoskeletal left knee: NVDI, calf SNT, negative cherrie sign. DP palpable, able to wiggle toes/ankle movement without difficulty. prineo dressing clean dry and intact. expected post-operative bruising noted. Discharge Data Allergies Allergy/AdvReac Type Severity Reaction Status Date / Time adhesive Allergy Unknown RASH WITH Verified 06/22/19 05:41 EXTENDED WEAR Egg Derived Allergy Unknown ALLERGY Verified 06/22/19 05:41 A CHILD (LIPS SWELLING & ITCHY) Sulfa (Sulfonamide Allergy Unknown ITCHING Verified 06/22/19 05:41 Antibiotics) AND RASH oxycodone AdvReac Unknown CRYING Verified 06/22/19 05:41 Consultations 06/22/19 10:11 Consult Case Management - Discharge Planning Routine Procedures Performed Operation Date: 06/22/19 07:15 Actual Procedures p Left Total Knee Arthroplasty(Left) - Quan Castillo DO Ordered Studies 06/22/19 05:00 US - OR guided needle placemen Routine Hospital Course (1) History of total left knee replacement: POD #1 s/p Left TKA pt/ot dvt proph with SHUKRI/SCD/ASA plan for d/c home with HHPT after PT today Laboratory Results WBC 10.78 K/uL (4.8-10.8) 06/23/19 06:35 RBC 3.44 M/uL (4.2-5.4) L 06/23/19 06:35 Hgb 10.7 g/dL (12.0-16.0) L 06/23/19 06:35 Hct 34.1 % (37-47) L 06/23/19 06:35 MCV 99.1 fL (80-100) 06/23/19 06:35 MCH 31.1 pg (25-34) 06/23/19 06:35 MCHC 31.4 g/dL (32-36) L 06/23/19 06:35 RDW Std Deviation 52.7 fL (36.4-46.3) H 06/23/19 06:35 RDW Coeff of Carmella 14.6 % (11.5-14.5) H 06/23/19 06:35 Plt Count 203 K/uL (130-400) 06/23/19 06:35 MPV 9.8 fL (7.4-10.4) 06/23/19 06:35 Immature Gran % (Auto) 0.4 % 06/10/19 13:10 Neut % (Auto) 59.0 % 06/10/19 13:10 Lymph % (Auto) 26.1 % 06/10/19 13:10 [place] % (Auto) 11.0 % 06/10/19 13:10 Eos % (Auto) 3.2 % 06/10/19 13:10 Baso % (Auto) 0.3 % 06/10/19 13:10 Immature Gran # (Auto) 0.03 K/uL (0.00-0.02) H 06/10/19 13:10 Neut # (Auto) 4.17 K/uL (1.4-6.5) 06/10/19 13:10 Lymph # (Auto) 1.85 K/uL (1.2-3.4) 06/10/19 13:10 [place] # (Auto) 0.78 K/uL (0.11-0.59) H 06/10/19 13:10 Eos # (Auto) 0.23 K/uL (0-0.5) 06/10/19 13:10 Baso # (Auto) 0.02 K/uL (0-0.2) 06/10/19 13:10 PT 10.6 Seconds (9.0-12.0) 06/10/19 13:10 INR 1.0 (0.9-1.1) 06/10/19 13:10 APTT 26.8 Seconds (21.0-31.0) 06/10/19 13:10 PTT Ratio 1.0 06/10/19 13:10 Sodium 138 mmol/L (136-145) 06/23/19 06:35 Potassium 4.2 mmol/L (3.5-5.1) 06/23/19 06:35 Chloride 107 mmol/L (98-107) 06/23/19 06:35 Carbon Dioxide 28 mmol/L (21-32) 06/23/19 06:35 Anion Gap 4.0 (3-11) 06/23/19 06:35 BUN 21 mg/dl (7-18) H 06/23/19 06:35 Creatinine 0.92 mg/dl (0.6-1.2) 06/23/19 06:35 Est Cr Clr Drug Dosing 65.9 ml/min 06/23/19 06:35 Est GFR ( Amer) 74.7 06/23/19 06:35 Est GFR (Non-Af Amer) 64.4 06/23/19 06:35 BUN/Creatinine Ratio 23.0 (10-20) H 06/23/19 06:35 Glucose 158 mg/dl (70-99) H 06/23/19 06:35 Estimat Average Glucose 131 mg/dl 04/20/19 11:54 Hemoglobin A1c 6.2 % (4.5-5.6) H 04/20/19 11:54 Calcium 8.4 mg/dl (8.5-10.1) L 06/23/19 06:35 Albumin 3.6 gm/dl (3.4-5.0) 06/10/19 13:10 Urine Color Yellow 06/10/19 13:10 Urine Appearance Clear (Clear) 06/10/19 13:10 Urine pH 7.0 (4.5-7.5) 06/10/19 13:10 Ur Specific [place] 1.021 (1.000-1.030) 06/10/19 13:10 Urine Protein Negative (Negative) 06/10/19 13:10 Urine Glucose (UA) Negative (Negative) 06/10/19 13:10 Urine Ketones Negative (Negative) 06/10/19 13:10 Urine Blood Negative (Negative) 06/10/19 13:10 Urine Nitrite Negative (Negative) 06/10/19 13:10 Urine Bilirubin Negative (Negative) 06/10/19 13:10 Urine Urobilinogen Negative (Negative) 06/10/19 13:10 Ur Leukocyte Esterase Trace (Negative) H 06/10/19 13:10 Urine WBC (Auto) 1-5 /hpf (0-5) 06/10/19 13:10 Urine RBC (Auto) 0-4 /hpf (0-4) 06/10/19 13:10 U Hyaline Cast (Auto) 5-10 /lpf (0-5) H 06/10/19 13:10 U Epithel Cells (Auto) >30 /lpf (0-5) H 06/10/19 13:10 Urine Bacteria (Auto) Negative (Negative) 06/10/19 13:10 Blood Type A Positive 04/20/19 11:54 Antibody Screen NEGATIVE 04/20/19 11:54 Total Time Total Time Spent Total Time Spent (In Minutes): 20 Total Time Includes: Examination of the Patient, Discharge Planning and Medication Reconciliation Discharge Plan Discharge Items Patient Disposition: Home - Home Health Services Reason For Visit: Unilateral Primary Osteoarthritis, Left Knee Discharge Diagnosis: left total knee replacement Condition on Discharge: Good Activity: Per Instructions section Lifting: Wait until after follow-up appointment Sexual Activity: Wait until after follow-up appointment Exercise/Sports: Wait until after follow-up appointment Weightbearing Comment: with walker Non-emergency contact: Surgeon Call non-emergency contact if: you have any medication questions, your tempera ture is above 101, your wound has increased redness, your wound has increased drainage and your wound pain has increased Follow-up/Referrals: Bindu Hassan D.O. [Primary Care Provider] - Diet: Regular Addtl Attending Provider Instructions: ACTIVITY RECOMMENDATIONS: SELF CARE INSTRUCTIONS AFTER TOTAL KNEE REPLACEMENT A. You may need to continue a physical therapy program after discharge from the hospital. There are several options available to you. Your doctor will assist you in selecting the best one for you. 1. An out-patient facility 2 to 3 times a week for therapy or home therapy. 2. Continue working on all exercises taught to you in the hospital. Your goals should be to increase bending of your knee to 90 degrees and beyond and to fully straighten your knee. B. You may progress at your own pace from walking with a walker or crutches to a cane; then to no assistive devices. C. Make walking a part of your daily routine. Be up as much as comfortable with rest periods throughout the day. Rest with leg elevation is very important. Use the ice wrap frequently for the first 3-4 weeks. D. There are no restrictions on activities. You may ride in a car, shop, participate in air brake tester and all social activities. E. Wear the long elastic stockings (SHUKRI hose) 20 hours a day for 2 weeks after surgery. They can be removed several times a day for laundering and for a bath. F. You may shower, no tub baths until cleared by your doctor. SPECIAL CARE INSTRUCTIONS: VERY IMPORTANT TO READ AND REVIEW A. There are a few signs you need to watch for after you are home. Call [facility] if you notice any of the followin. Increased severe knee pain. Some pain is expected especially when you exercise. 2. Increased swelling in your leg or knee; pain or swelling of the calf muscle in either lower leg. 3. Any fluid drainage from the incision. 4. Shortness of breath or chest pain. B. Please call [facility] at if you have any concerns or questions about your operation or recovery. The doctor or his nurse will return your call promptly. C. You must take antibiotics before dental work, bladder, bowel or other surgery. Your doctor will provide you with a permanent care to carry describing this precaution. IMPORTANT: * REMEMBER TO TAKE ASPIRIN, 81 MG, TWICE DAILY FOR 4 WEEKS UNLESS OTHERWISE DIRECTED. THIS IS YOUR BLOOD THINNER. * HIGH RISK PATIENTS MAY BE PRESCRIBED A STRONGER BLOOD THINNER. THIS WILL BE PROVIDED AT DISCHARGE. * CALL IF INCREASED PAIN, REDNESS, DRAINAGE OR FEVER GREATER THAT 101. * WEAR SHUKRI HOSE 20 HOURS PER DAY FOR 2 WEEKS. * DERMABOND Prineo- This is a mesh tape dressing that is covered with glue. It should remain in place until the incision is properly healed, usually 10-14 days. This dressing is designed to naturally slough off. You may trim the excess mesh tape as it peels off. Incision may be briefly wet in a shower. Dry immediately by blotting with a clean, dry towel. Do not bath or swim until instructed by your doctor. Do not scratch, rub, or pick at the dressing. Do not apply any topical ointments or lotions until dressing is completely removed and/or instructed by your doctor. There may be a small piece of suture material at one end of your incision. Do not pull or trim this. If it is bothersome or catching on clothing, you may cover it with a band-aid. IF INCISION IS LEAKING THROUGH DRESSING, CALL THE OFFICE . FOLLOW UP VISIT: If appointment is not already scheduled: Please call [facility] to make a follow-up appointment for 2 weeks after your surgery at . Pending Studies at Discharge: No Stand-Alone Forms: My [employer]gram, Smoking Cessation Medications and DC Order Prescriptions: New aspirin [Ecotrin Low Strength] 81 mg Tablet,Delayed Release (Dr/Ec) 81 mg PO BID 30 Days Qty: 60 RF: 0 acetaminophen 500 mg Tablet 1,000 mg PO Q8 14 Days Qty: 84 RF: 0 oxycodone 5 mg Tablet 5 - 10 mg PO Q6H PRN (Reason: pain) Qty: 30 RF: 0 docusate sodium 100 mg Capsule 100 mg PO BID 10 Days Qty: 20 RF: 0 ciprofloxacin HCl [Cipro] 500 mg tablet 500 mg PO BID 10 Days Qty: 20 RF: 0 Continued furosemide 40 mg Tablet 40 mg PO UD PRN (Reason: SWELLING) RF: 0 potassium chloride [Klor-Con 10] 10 mEq Tablet Extended Release 10 meq PO UD PRN (Reason: WITH WATER PILL ) RF: 0 levothyroxine 50 mcg Tablet 50 mcg PO HS RF: 0 clonazepam 0.25 mg Tablet,Disintegrating 0.5 mg PO UD PRN (Reason: Anxiety) RF: 0 Flintstones with Iron 18 mg iron Tablet,Chewable 1 tab PO QAM RF: 0 meloxicam [Mobic] 15 mg tablet 15 mg PO DAILY Qty: 30 RF: 0 calcium carbonate-vitamin D3 [Calcium 600 + D(3)] 600 mg(1,500mg) -400 unit Tablet 2 tab PO DAILY RF: 0 Discharge Orders: Discharge Order (Routine); Ordered 06/23/19 Ordered By: Yovany Bill/Other Patient Handouts: A1C Admission Data Admit Date/Time: 06/22/19 09:16 Attending Provider: Quan Castillo Admit Provider: Quan Castillo Primary Care Provider: Bindu Hassan
[2019-06-24] MEDS ORDERED: MELOXICAM 7.5 MG TAB PO SCH (09:00)
== END 2019-06-23 13:47 | disposition home health service (06) | DRG 470 ==
LOC: ASU 04:47 → 3E 09:16